=== PATIENT | female | born 1970 | race Caucasian/White ===

== ENCOUNTER 2017-06-06 17:48 | Observation (INO) ==
[2017-06-06 18:40] LABS: Bilirubin,Urine Negative (Negative); Blood,Urine Trace (Negative); Clarity,Urine Clear (Clear); Color,Urine Yellow (Yellow); Glucose,Urine (UA) 100 mg/dL (Normal); Ketones,Urine Negative (Negative); Leukocyte Esterase,Urine Negative (Negative); Nitrite,Urine Negative (Negative); Protein,Urine >=300 mg/dL (Neg-Trace); Specific Gravity,Urine 1.014 (1.010-1.025); Urobilinogen,Urine Normal (Normal)
[2017-06-06 18:42] LABS: Bacteria,Urine None Seen per hpf (None-Few); Hyaline Casts,Urine None Seen per lpf (None-Few); RBC,Urine 0-3 per hpf (0-3); Squamous Epithelial Cell,Urine Many per lpf (None-Few)
[2017-06-06] MEDS ORDERED: Haloperidol Lactate 5 MG/ML VIAL IVP ONE (19:35)
[2017-06-06] MEDS ORDERED: 0.9 % Sodium Chloride 1,000 ML IVC ONE (19:35)
--- NOTE | 2017-06-06 19:37 | Emergency Department Note ---
Disposition Clinical Impression: Gastroparesis Abdominal pain Qualifiers: Abdominal location: epigastric Qualified Code(s): R10.13 - Epigastric pain Chronic kidney disease Qualifiers: Chronic kidney disease stage: unspecified stage Qualified Code(s): N18.9 - Chronic kidney disease, unspecified Disposition: Admitted As Inpatient Condition: Fair Referrals: Soraya Lopez MD [Primary Care Provider] - Forms: Work/School Release, ED Satisfaction Letter Time of Disposition: 20:52 General Adult HPI - General Chief complaint: ED General Medical Stated complaint: ABD Pain,MAT,CP Time Seen by Provider: 06/06/17 18:40 Source: patient Mode of arrival: ambulatory Limitations: no limitations Nursing Notes Reviewed: Yes Vital Signs Reviewed: Yes - History of Present Illness HPI Narrative: 47-year-old female with a history of diabetes, gastroparesis, hypertension, fibromyalgia presents for evaluation of multiple complaints. Patient states she has been having chronic abdominal pain in the epigastrium. Patient does feel it she has undigested food in her stomach. Patient notes reflux of symptoms. Patient feels that this is different than her typical gastroparesis. Patient does have an insulin pump in place. Patient reports low-grade fevers nonproductive cough. Patient also reports shortness of breath. Patient reported back pain. Patient states that her bowel movements are at her baseline. The patient's had approximately 2 stools over the past week. Patient does follow with Dr. Saavedra. Patient denies any history of heart attacks or stents placed. Pain Scale: 7 - Related Data Home Medications Medication Instructions Recorded Confirmed Azathioprine [Imuran] 50 mg PO QAM 11/11/14 06/03/16 Diltiazem CD (24hr) [Cardizem CD] 300 mg PO QAM 11/11/14 06/03/16 FLUoxetine HCl [Prozac] 40 mg PO QAM 11/11/14 06/03/16 Fluticasone Propionate Nasal 100 mcg NS DAILY PRN 11/11/14 06/03/16 [Flonase] Gabapentin [Neurontin] 1,800 mg PO HS 11/11/14 06/03/16 Insulin ASPART [NovoLOG] 40 unit SQ CONT 11/11/14 06/03/16 Methylphenidate HCl [Ritalin] 20 mg PO TID 11/11/14 06/03/16 Multivitamin/Iron/Folic Acid 1 each PO DAILY 11/11/14 06/03/16 [Centrum Complete Multivit Tab] Pantoprazole Sodium [Protonix] 40 mg PO QAM 11/11/14 06/03/16 Rosuvastatin Calcium [Crestor] 10 mg PO DAILY 06/03/16 06/03/16 Previous Rx's Medication Instructions Recorded Clopidogrel Bisulfate [Plavix] 75 mg PO QAM #30 tablet 06/03/16 Albuterol Sulfate [Albuterol 2 puff IH Q6HR #1 hfa.aer.ad 12/27/16 Inhaler] Azithromycin [Zithromax] 250 mg PO DAILY #6 tablet 12/27/16 Allergies Allergy/AdvReac Type Severity Reaction Status Date / Time Varenicline [From Chantix] Allergy Hives Verified 12/27/16 13:20 acetaminophen [From Percocet] AdvReac Vomiting Verified 12/27/16 13:20 cilostazol AdvReac See Verified 12/27/16 13:20 Comments metoclopramide [From Reglan] AdvReac See Verified 12/27/16 13:20 Comments Oxycodone [From Percocet] AdvReac Vomiting Verified 12/27/16 13:20 Sulfa (Sulfonamide AdvReac Nausea Verified 12/27/16 13:20 Antibiotics) All systems ED: reviewed and negative except as stated. Constitutional: Denies: fever Cardiovascular: Reports: chest pain Respiratory: Reports: cough, dyspnea Gastrointestinal: Reports: abdominal pain, nausea, vomiting Past Medical History - Past Medical History Source: patient Medical history: Reports: diabetes, fibromyalgia, GERD, hyperlipidemia, hypertension, peripheral artery disease, renal disease Surgical history: Reports: sinus surgery, other Psychiatric history: Reports: anxiety, depression - Social History Smoking Status: Former smoker Smokeless Tobacco Status: No Alcohol use: Reports: occasionally Drug use: Reports: none Physical Exam - General Limitations: no limitations General appearance: alert, in no apparent distress - Head Head exam: atraumatic, normocephalic, normal inspection - Eye Eye exam: Present: normal appearance, PERRL, EOMI - ENT ENT exam: normal exam, normal oropharynx, mucous membranes moist - Neck Neck exam: Present: normal inspection - Chest Chest inspection: Present: normal inspection, symmetric chest wall rise - Respiratory Respiratory exam: Present: normal lung sounds bilaterally. Absent: respiratory distress - Cardiovascular Cardiovascular exam: Present: regular rate, normal rhythm - Abdominal Exam Abdominal exam: Present: soft, Non-Tender, hyperactive bowel sounds. Absent: distention, guarding, rebound - Extremities Exam Extremities exam: Present: normal inspection. Absent: pedal edema - Back Exam Back exam: Present: normal inspection - Neurological Exam Neurological exam: Present: alert - Skin Skin exam: Present: warm, dry, intact, normal color Course Course Narrative: Patient seen and examined. Patient will get basic labs and screening cardiopulmonary evaluation. Patient also get a CT scan the abdomen and pelvis. Patient treated with IV fluids and Haldol. - Reevaluation(s) Reevaluation #1: Patient seen and examined. Patient's repeat abdominal exam is unremarkable. Patient is agreeable with inpatient admission regarding her electrolyte abnormalities. Time: 20:50 Vital Signs Temperature 98.2 F 06/06/17 18:19 Pulse Rate 92 06/06/17 18:19 Respiratory Rate 18 06/06/17 18:19 Blood Pressure 117/71 06/06/17 18:19 O2 Sat by Pulse Oximetry 98 06/06/17 18:19 Temperature 98.2 F 06/06/17 18:19 Pulse Rate 81 06/06/17 19:39 Respiratory Rate 16 06/06/17 19:39 Blood Pressure 151/77 06/06/17 19:39 O2 Sat by Pulse Oximetry 98 06/06/17 19:39 Oxygen Delivery Oxygen Delivery Room Air Medical Decision Making - [facility] Narrative Medical decision making narrative: Patient presents with multiple complaints. Patient does have a history of gastroparesis and intermittently has some degree of abdominal discomfort. Patient states that her discomfort worsened over the past 24 hours. Noted to be primarily in the epigastrium. Patient does not have any right upper quadrant tenderness. Patient has also felt short of breath without any chest pain. No fevers or cough. Patient's ED evaluations consistent with acute on chronic kidney disease. Patient does have an element of gastroparesis treated with Haldol. Patient's resting comfortably following that medication. Patient does not show any signs or symptoms consistent with a bowel obstruction. Patient does have hyperactive bowel sounds and has a soft abdomen. Patient will be admitted for acute on chronic kidney disease. Patient's also been complaining of dyspnea that is subjective. Patient is not hypoxic or tachycardic. Patient's dyspnea is likely secondary to her abdominal distention and fullness. Patient is low risk for pulmonary embolism or ACS. Patient did get urine sodium and urine creatinine obtained. Patient was noted to be anemic but appears be chronic anemic in the setting of chronic kidney disease. Patient follows with Dr. Saunders. - Lab Data Lab results reviewed: Yes I reviewed the patient's lab results. Result diagrams: 06/06/17 19:29 06/06/17 19:29 Lab Results 06/06/17 06/06/17 06/06/17 Range/Units 18:00 19:29 19:29 WBC 10.9 (4.3-11.1) K/mcL RBC 3.62 L (3.82-4.97) M/mcL Hgb 11.4 L (11.5-15.4) g/dL Hct 35.0 L (35.3-44.9) % MCV 96.7 (83.0-100.0) fL MCH 31.5 (28.0-33.3) pg MCHC 32.6 (31.6-35.5) g/dL RDW 14.5 (11.5-14.5) % Plt Count 298 (140-400) K/mcL MPV 10.6 (9.4-12.4) fL Immature Gran % 0.3 (0-4) % Seg Neutrophils % 72.9 % Lymphocytes % 17.9 % Monocytes % 6.4 % Eosinophils % 1.9 % Basophils % 0.6 % Neutrophils # 7.9 (1.6-8.9) K/mcL Lymphocytes # 2.0 (0.6-4.6) K/mcL Monocytes # 0.7 (0.0-1.3) K/mcL Eosinophils # 0.2 (0.0-0.6) K/mcL Basophils # 0.1 (0.0-0.2) K/mcL Sodium 137 (136-145) mEq/L Potassium 4.9 (3.5-5.1) mEq/L Chloride 105 (98-107) mEq/L Carbon Dioxide 24 (23-29) mEq/L BUN 31 H (6-20) mg/dL Creatinine 2.95 H (0.60-1.20) mg/dL Est GFR ( Amer) 20 L (> 60) Est GFR (Non-Af Amer) 17 L (> 60) BUN/Creatinine Ratio 11 (6-26) Glucose 162 H (70-105) mg/dL Calculated Osmolality 294 (280-300) Lactic Acid (0.5-2.2) mmol/L Calcium 9.6 (8.6-10.3) mg/dL Total Bilirubin (0.3-1.0) mg/dL Direct Bilirubin (0.0-0.2) mg/dL Indirect Bilirubin (0.0-1.2) mg/dL AST (13-39) Units/L ALT (7-52) Units/L Alkaline Phosphatase (34-104) Units/L Troponin I < 0.03 (< 0.04) ng/mL B-Natriuretic Peptide (Less than 100) pg/mL Serum Total Protein (6.4-8.9) g/dL Albumin (3.5-5.7) g/dL Globulin (2.4-3.5) g/dL Albumin/Globulin Ratio (1.1-2.2) Lipase (11-82) Units/L Urine Color Yellow (Yellow) Urine Clarity Clear (Clear) Urine pH 6.0 (5.0-8.0) pH Units Ur Specific [place] 1.014 (1.010-1.025) Urine Protein >=300 H (Neg-Trace) mg/dL Urine Glucose (UA) 100 H (Normal) mg/dL Urine Ketones Negative (Negative) mg/dL Urine Blood Trace H (Negative) Urine Nitrite Negative (Negative) Urine Bilirubin Negative (Negative) Urine Urobilinogen Normal (Normal) mg/dL Ur Leukocyte Esterase Negative (Negative) Urine Microscopic RBC 0-3 (0-3) per hpf Urine Microscopic WBC 5-15 H (0-3) per hpf Ur Squamous Epith Cells Many H (None-Few) per lpf Urine Bacteria None Seen (None-Few) per hpf Hyaline Casts None Seen (None-Few) per lpf Ur Culture Indicated? NO (NO) 06/06/17 06/06/17 06/06/17 Range/Units 19:29 20:03 20:03 WBC (4.3-11.1) K/mcL RBC (3.82-4.97) M/mcL Hgb (11.5-15.4) g/dL Hct (35.3-44.9) % MCV (83.0-100.0) fL MCH (28.0-33.3) pg MCHC (31.6-35.5) g/dL RDW (11.5-14.5) % Plt Count (140-400) K/mcL MPV (9.4-12.4) fL Immature Gran % (0-4) % Seg Neutrophils % % Lymphocytes % % Monocytes % % Eosinophils % % Basophils % % Neutrophils # (1.6-8.9) K/mcL Lymphocytes # (0.6-4.6) K/mcL Monocytes # (0.0-1.3) K/mcL Eosinophils # (0.0-0.6) K/mcL Basophils # (0.0-0.2) K/mcL Sodium (136-145) mEq/L Potassium (3.5-5.1) mEq/L Chloride (98-107) mEq/L Carbon Dioxide (23-29) mEq/L BUN (6-20) mg/dL Creatinine (0.60-1.20) mg/dL Est GFR ( Amer) (> 60) Est GFR (Non-Af Amer) (> 60) BUN/Creatinine Ratio (6-26) Glucose (70-105) mg/dL Calculated Osmolality (280-300) Lactic Acid 0.8 (0.5-2.2) mmol/L Calcium (8.6-10.3) mg/dL Total Bilirubin 0.3 (0.3-1.0) mg/dL Direct Bilirubin 0.1 (0.0-0.2) mg/dL Indirect Bilirubin 0.2 (0.0-1.2) mg/dL AST 19 (13-39) Units/L ALT 12 (7-52) Units/L Alkaline Phosphatase 123 H (34-104) Units/L Troponin I (< 0.04) ng/mL B-Natriuretic Peptide 73 (Less than 100) pg/mL Serum Total Protein 8.1 (6.4-8.9) g/dL Albumin 4.3 (3.5-5.7) g/dL Globulin 3.8 H (2.4-3.5) g/dL Albumin/Globulin Ratio 1.1 (1.1-2.2) Lipase 25 (11-82) Units/L Urine Color (Yellow) Urine Clarity (Clear) Urine pH (5.0-8.0) pH Units Ur Specific [place] (1.010-1.025) Urine Protein (Neg-Trace) mg/dL Urine Glucose (UA) (Normal) mg/dL Urine Ketones (Negative) mg/dL Urine Blood (Negative) Urine Nitrite (Negative) Urine Bilirubin (Negative) Urine Urobilinogen (Normal) mg/dL Ur Leukocyte Esterase (Negative) Urine Microscopic RBC (0-3) per hpf Urine Microscopic WBC (0-3) per hpf Ur Squamous Epith Cells (None-Few) per lpf Urine Bacteria (None-Few) per hpf Hyaline Casts (None-Few) per lpf Ur Culture Indicated? (NO) - Radiology Data Radiology results reviewed: Yes I reviewed the patient's radiology results. Chest X-Ray 06/06/17 18:41 IMPRESSION: No acute cardiopulmonary disease. D/ / Elton Mcgrath MD / Elton Mcgrath MD Interpreting Provider: Elton Mcgrath MD Abdomen/Pelvis CT 06/06/17 19:34 IMPRESSION: No acute abdominopelvic abnormality detected. Large amount of retained stool throughout the colon. D/ / Jair Telles MD / Jair Telles MD Interpreting Provider: Jair Telles MD - EKG Data EKG #1 EKG attestation: Yes I reviewed and interpreted this EKG. EKG shows normal: sinus rhythm Rate: normal Rhythm: NSR [place]/QRS: normal P waves: LAE T wave inversions noted in: v1 Interpretation: no acute changes, nonspecific ST-T wave changes S.B.A.R. - S.B.A.RElías Situation: Demographics Background: Presenting Complaint Assessment: Vital Signs, Patient/Family Expectation Recommendation: Barrier(s) to disposition, Recommendation based on pending studies, treatments, or consults S.B.A.RElías Report Given to: Dr. Nhi Foreman Repor Time: 20:59
[2017-06-06 19:50] LABS: Basophils # 0.1 K/mcL (0.0-0.2); Basophils % 0.6 %; Eosinophils # 0.2 K/mcL (0.0-0.6); Eosinophils % 1.9 %; Hemoglobin 11.4 g/dL (11.5-15.4); Immature Granulocytes % 0.3 % (0-4); Lymphocytes % 17.9 %; Mean Corpuscular HGB Conc 32.6 g/dL (31.6-35.5); Mean Corpuscular Hemoglobin 31.5 pg (28.0-33.3); Mean Corpuscular Volume 96.7 fL (83.0-100.0); Mean Platelet Volume 10.6 fL (9.4-12.4); Monocytes # 0.7 K/mcL (0.0-1.3); Monocytes % 6.4 %; Neutrophils # 7.9 K/mcL (1.6-8.9); Platelet Count 298 K/mcL (140-400); Red Blood Count 3.62 M/mcL (3.82-4.97); Red Cell Distribution Width 14.5 % (11.5-14.5); Segmented Neutrophils % 72.9 %
[2017-06-06 20:12] LABS: Troponin I < 0.03 ng/mL (< 0.04)
[2017-06-06 20:13] LABS: BUN/Creatinine Ratio 11 (6-26); Blood Urea Nitrogen 31 mg/dL (6-20); Calcium 9.6 mg/dL (8.6-10.3); Carbon Dioxide 24 mEq/L (23-29); Chloride 105 mEq/L (98-107); Glucose 162 mg/dL (70-105); Osmolality,Calculated 294 (280-300); Potassium 4.9 mEq/L (3.5-5.1); Sodium 137 mEq/L (136-145); eGFR For African Americans 20 (> 60); eGFR For Non-African Americans 17 (> 60)
[2017-06-06 20:43] LABS: Albumin 4.3 g/dL (3.5-5.7); Albumin/Globulin Ratio 1.1 (1.1-2.2); Bilirubin,Direct 0.1 mg/dL (0.0-0.2); Bilirubin,Indirect 0.2 mg/dL (0.0-1.2); Bilirubin,Total 0.3 mg/dL (0.3-1.0); Globulin 3.8 g/dL (2.4-3.5); Total Protein 8.1 g/dL (6.4-8.9)
--- NOTE | 2017-06-06 20:56 | Emergency Department Note ---
Disposition Clinical Impression: Gastroparesis Abdominal pain Qualifiers: Abdominal location: epigastric Qualified Code(s): R10.13 - Epigastric pain Chronic kidney disease Qualifiers: Chronic kidney disease stage: unspecified stage Qualified Code(s): N18.9 - Chronic kidney disease, unspecified Disposition: Admitted As Inpatient Condition: Fair Referrals: Soraya Lopez MD [Primary Care Provider] - Forms: ED Satisfaction Letter, Work/School Release General Adult HPI - General Chief complaint: ED General Medical Stated complaint: ABD Pain,MAT,CP Time Seen by Provider: 06/06/17 18:40 Source: patient Mode of arrival: ambulatory Limitations: no limitations - History of Present Illness Pain Scale: 7 - Related Data Home Medications Medication Instructions Recorded Confirmed Azathioprine [Imuran] 50 mg PO QAM 11/11/14 06/03/16 Diltiazem CD (24hr) [Cardizem CD] 300 mg PO QAM 11/11/14 06/03/16 FLUoxetine HCl [Prozac] 40 mg PO QAM 11/11/14 06/03/16 Fluticasone Propionate Nasal 100 mcg NS DAILY PRN 11/11/14 06/03/16 [Flonase] Gabapentin [Neurontin] 1,800 mg PO HS 11/11/14 06/03/16 Insulin ASPART [NovoLOG] 40 unit SQ CONT 11/11/14 06/03/16 Methylphenidate HCl [Ritalin] 20 mg PO TID 11/11/14 06/03/16 Multivitamin/Iron/Folic Acid 1 each PO DAILY 11/11/14 06/03/16 [Centrum Complete Multivit Tab] Pantoprazole Sodium [Protonix] 40 mg PO QAM 11/11/14 06/03/16 Rosuvastatin Calcium [Crestor] 10 mg PO DAILY 06/03/16 06/03/16 Previous Rx's Medication Instructions Recorded Clopidogrel Bisulfate [Plavix] 75 mg PO QAM #30 tablet 06/03/16 Albuterol Sulfate [Albuterol 2 puff IH Q6HR #1 hfa.aer.ad 12/27/16 Inhaler] Azithromycin [Zithromax] 250 mg PO DAILY #6 tablet 12/27/16 Allergies Allergy/AdvReac Type Severity Reaction Status Date / Time Varenicline [From Chantix] Allergy Hives Verified 12/27/16 13:20 acetaminophen [From Percocet] AdvReac Vomiting Verified 12/27/16 13:20 cilostazol AdvReac See Verified 12/27/16 13:20 Comments metoclopramide [From Reglan] AdvReac See Verified 12/27/16 13:20 Comments Oxycodone [From Percocet] AdvReac Vomiting Verified 12/27/16 13:20 Sulfa (Sulfonamide AdvReac Nausea Verified 12/27/16 13:20 Antibiotics) Constitutional: Denies: fever Cardiovascular: Reports: chest pain Respiratory: Reports: cough, dyspnea Gastrointestinal: Reports: abdominal pain, nausea, vomiting Past Medical History - Past Medical History Medical history: Reports: diabetes, fibromyalgia, GERD, hyperlipidemia, hypertension, peripheral artery disease, renal disease Surgical history: Reports: sinus surgery, other Psychiatric history: Reports: anxiety, depression - Social History Smoking Status: Former smoker Smokeless Tobacco Status: No Alcohol use: Reports: occasionally Drug use: Reports: none Physical Exam - General Limitations: no limitations General appearance: alert, in no apparent distress Course Vital Signs Temperature 98.2 F 06/06/17 18:19 Pulse Rate 92 06/06/17 18:19 Respiratory Rate 18 06/06/17 18:19 Blood Pressure 117/71 06/06/17 18:19 O2 Sat by Pulse Oximetry 98 06/06/17 18:19 Temperature 98.2 F 06/06/17 18:19 Pulse Rate 81 06/06/17 19:39 Respiratory Rate 16 06/06/17 19:39 Blood Pressure 151/77 06/06/17 19:39 O2 Sat by Pulse Oximetry 98 06/06/17 19:39 Oxygen Delivery Oxygen Delivery Room Air Medical Decision Making - Lab Data Result diagrams: 06/06/17 19:29 06/06/17 19:29 Lab Results 06/06/17 06/06/17 06/06/17 Range/Units 18:00 19:29 19:29 WBC 10.9 (4.3-11.1) K/mcL RBC 3.62 L (3.82-4.97) M/mcL Hgb 11.4 L (11.5-15.4) g/dL Hct 35.0 L (35.3-44.9) % MCV 96.7 (83.0-100.0) fL MCH 31.5 (28.0-33.3) pg MCHC 32.6 (31.6-35.5) g/dL RDW 14.5 (11.5-14.5) % Plt Count 298 (140-400) K/mcL MPV 10.6 (9.4-12.4) fL Immature Gran % 0.3 (0-4) % Seg Neutrophils % 72.9 % Lymphocytes % 17.9 % Monocytes % 6.4 % Eosinophils % 1.9 % Basophils % 0.6 % Neutrophils # 7.9 (1.6-8.9) K/mcL Lymphocytes # 2.0 (0.6-4.6) K/mcL Monocytes # 0.7 (0.0-1.3) K/mcL Eosinophils # 0.2 (0.0-0.6) K/mcL Basophils # 0.1 (0.0-0.2) K/mcL Sodium 137 (136-145) mEq/L Potassium 4.9 (3.5-5.1) mEq/L Chloride 105 (98-107) mEq/L Carbon Dioxide 24 (23-29) mEq/L BUN 31 H (6-20) mg/dL Creatinine 2.95 H (0.60-1.20) mg/dL Est GFR ( Amer) 20 L (> 60) Est GFR (Non-Af Amer) 17 L (> 60) BUN/Creatinine Ratio 11 (6-26) Glucose 162 H (70-105) mg/dL Calculated Osmolality 294 (280-300) Lactic Acid (0.5-2.2) mmol/L Calcium 9.6 (8.6-10.3) mg/dL Total Bilirubin (0.3-1.0) mg/dL Direct Bilirubin (0.0-0.2) mg/dL Indirect Bilirubin (0.0-1.2) mg/dL AST (13-39) Units/L ALT (7-52) Units/L Alkaline Phosphatase (34-104) Units/L Troponin I < 0.03 (< 0.04) ng/mL B-Natriuretic Peptide (Less than 100) pg/mL Serum Total Protein (6.4-8.9) g/dL Albumin (3.5-5.7) g/dL Globulin (2.4-3.5) g/dL Albumin/Globulin Ratio (1.1-2.2) Lipase (11-82) Units/L Urine Color Yellow (Yellow) Urine Clarity Clear (Clear) Urine pH 6.0 (5.0-8.0) pH Units Ur Specific [place] 1.014 (1.010-1.025) Urine Protein >=300 H (Neg-Trace) mg/dL Urine Glucose (UA) 100 H (Normal) mg/dL Urine Ketones Negative (Negative) mg/dL Urine Blood Trace H (Negative) Urine Nitrite Negative (Negative) Urine Bilirubin Negative (Negative) Urine Urobilinogen Normal (Normal) mg/dL Ur Leukocyte Esterase Negative (Negative) Urine Microscopic RBC 0-3 (0-3) per hpf Urine Microscopic WBC 5-15 H (0-3) per hpf Ur Squamous Epith Cells Many H (None-Few) per lpf Urine Bacteria None Seen (None-Few) per hpf Hyaline Casts None Seen (None-Few) per lpf Ur Culture Indicated? NO (NO) 06/06/17 06/06/17 06/06/17 Range/Units 19:29 20:03 20:03 WBC (4.3-11.1) K/mcL RBC (3.82-4.97) M/mcL Hgb (11.5-15.4) g/dL Hct (35.3-44.9) % MCV (83.0-100.0) fL MCH (28.0-33.3) pg MCHC (31.6-35.5) g/dL RDW (11.5-14.5) % Plt Count (140-400) K/mcL MPV (9.4-12.4) fL Immature Gran % (0-4) % Seg Neutrophils % % Lymphocytes % % Monocytes % % Eosinophils % % Basophils % % Neutrophils # (1.6-8.9) K/mcL Lymphocytes # (0.6-4.6) K/mcL Monocytes # (0.0-1.3) K/mcL Eosinophils # (0.0-0.6) K/mcL Basophils # (0.0-0.2) K/mcL Sodium (136-145) mEq/L Potassium (3.5-5.1) mEq/L Chloride (98-107) mEq/L Carbon Dioxide (23-29) mEq/L BUN (6-20) mg/dL Creatinine (0.60-1.20) mg/dL Est GFR ( Amer) (> 60) Est GFR (Non-Af Amer) (> 60) BUN/Creatinine Ratio (6-26) Glucose (70-105) mg/dL Calculated Osmolality (280-300) Lactic Acid 0.8 (0.5-2.2) mmol/L Calcium (8.6-10.3) mg/dL Total Bilirubin 0.3 (0.3-1.0) mg/dL Direct Bilirubin 0.1 (0.0-0.2) mg/dL Indirect Bilirubin 0.2 (0.0-1.2) mg/dL AST 19 (13-39) Units/L ALT 12 (7-52) Units/L Alkaline Phosphatase 123 H (34-104) Units/L Troponin I (< 0.04) ng/mL B-Natriuretic Peptide 73 (Less than 100) pg/mL Serum Total Protein 8.1 (6.4-8.9) g/dL Albumin 4.3 (3.5-5.7) g/dL Globulin 3.8 H (2.4-3.5) g/dL Albumin/Globulin Ratio 1.1 (1.1-2.2) Lipase 25 (11-82) Units/L Urine Color (Yellow) Urine Clarity (Clear) Urine pH (5.0-8.0) pH Units Ur Specific [place] (1.010-1.025) Urine Protein (Neg-Trace) mg/dL Urine Glucose (UA) (Normal) mg/dL Urine Ketones (Negative) mg/dL Urine Blood (Negative) Urine Nitrite (Negative) Urine Bilirubin (Negative) Urine Urobilinogen (Normal) mg/dL Ur Leukocyte Esterase (Negative) Urine Microscopic RBC (0-3) per hpf Urine Microscopic WBC (0-3) per hpf Ur Squamous Epith Cells (None-Few) per lpf Urine Bacteria (None-Few) per hpf Hyaline Casts (None-Few) per lpf Ur Culture Indicated? (NO) Attestation Statement - Attestation Attestation: I examined this patient and my medical decision-making was reviewed with the Resident Physician. I agree with the documented findings, disposition and treatment plan as described except to the extent set forth below. 47 year old female prsentes to the ED with complaitns of abdominal pain and chest paina nd dyspnea and states that she has a history of diabetes and gastroparesis and follows with Dr. Saavedra. Patient has acute on chronic kdiney failure and states that she has been vomitting because she feels something stuck in her stoamch adn feels full all the time. We will admit for acute on chronic kidney disese
[2017-06-06] MEDS ORDERED: Naloxone 0.4 MG/ML INJ IVP PRN (21:27)
[2017-06-06] MEDS ORDERED: D5% in Water 1,000 ML IVC PRN (21:40)
[2017-06-06] MEDS ORDERED: Dextrose Gel 15 GM/37.5 ML TUBE PO PRN ×2 (21:40)
[2017-06-06] MEDS ORDERED: *HR* Dextrose 50 % in Water (Syg) 50 ML SYRINGE IVP PRN (21:40)
--- NOTE | 2017-06-06 21:40 | Internal Med History&Physical ---
Date of Encounter: 06/06/17 Time of Encounter: 21:00 Internal Medicine - H&P: HPI Chief complaint: Nausea, chest pain Admitted From: Home Plans for Post Hospital Care: Home History of present illness: Ms. Mercedes is a 47 year old female present to ER for nausea and reflex for 1- 2 days and intermittent chest pain for about 1 week. Past medical history: Diabetes on insulin pump, hypertension, autoimmune hepatitis, CKD, gastroparesis, PVD S/P stent, vitamin D deficiency, anemia, GERD Patient said she has GERD and gastroparesis due to diabetes and the she started to have nausea and increased the reflex for 1-2 days, with poor intake. Patient denies nausea or abdominal pain. She denies diarrhea. Patient also complaining of intermittent chest pain for about 1 week, no radiation, located on bilateral chest. Patient has chronic shortness of breath since the one month ago, when she had pneumonia. The chest pain lasted several minutes. Patient states sometimes diaphoresis. In the emergency room, EKG and a chest x- ray, and a CT abdomen unremarkable. Patient was found having elevated creatinine level from her baseline (1.5 -2.9). Patient was admitted for chest pain and GEOFF on CKD. Past Med Surg Social Fam HX - Past Medical History Medical history: diabetes, fibromyalgia, GERD, hyperlipidemia, hypertension, peripheral artery disease, renal disease Psychiatric history: anxiety, depression - Past Surgical History Surgical History: sinus surgery, other - Social History Smoking Status: Former smoker Smokeless Tobacco Status: No Alcohol use: occasionally Drug use: none - Family History Father Living Status: Still Living Hx Family Cancer: Yes (esophageal) Internal Medicine - H&P: Meds Azathioprine [Imuran] 50 mg PO QAM 11/11/14 [History] Diltiazem CD (24hr) [Cardizem CD] 300 mg PO QAM 11/11/14 [History] Fluticasone Propionate Nasal [Flonase] 100 mcg NS DAILY PRN 11/11/14 [History] Gabapentin [Neurontin] 1,800 mg PO HS 11/11/14 [History] Multivitamin/Iron/Folic Acid [Centrum Complete Multivit Tab] 1 each PO DAILY [History] Pantoprazole Sodium [Protonix] 40 mg PO QAM 11/11/14 [History] Rosuvastatin Calcium [Crestor] 10 mg PO DAILY 04/07/17 [History] Aspirin Enteric Coated [Aspirin EC] 81 mg PO DAILY 06/06/17 [History] Ergocalciferol (VITAMIN D2) [Vitamin D2] 50,000 unit PO MOFR 06/06/17 [History] FLUoxetine HCl [Prozac] 40 mg PO DAILY 06/06/17 [History] Fluticasone Propionate [Flovent Hfa] 2 puff IH BID 06/06/17 [History] Methylphenidate HCl [Ritalin] 20 mg PO TID 06/06/17 [History] Ondansetron HCl [Zofran] 4 mg PO DAILY 06/06/17 [History] Subcutaneous Insulin Pump [T:Slim] 1 each MC AD 06/06/17 [History] 3 Allergy/AdvReac Type Severity Reaction Status Date / Time Varenicline [From Chantix] Allergy Hives Verified 12/27/16 13:20 acetaminophen [From Percocet] AdvReac Vomiting Verified 12/27/16 13:20 cilostazol AdvReac See Verified 12/27/16 13:20 Comments metoclopramide [From Reglan] AdvReac See Verified 12/27/16 13:20 Comments Oxycodone [From Percocet] AdvReac Vomiting Verified 12/27/16 13:20 Sulfa (Sulfonamide AdvReac Nausea Verified 12/27/16 13:20 Antibiotics) All Systems PM: A 10-system review of systems was performed and is negative for pertinent findings except as documented above in the HPI. - Constitutional Vitals: Temp Pulse Resp BP Pulse Ox 98.2 F 76 14 139/79 97 06/06/17 18:19 06/06/17 21:28 06/06/17 21:28 06/06/17 21:28 06/06/17 21:28 General appearance: Present: A&O X 3, no acute distress, answers questions appropriately - Head Head exam: Present: atraumatic, normocephalic - Eye Eye exam: Present: PERRL, conjuntiva pink, sclera anicteric Pupils: Present: PERRL - Neck Neck exam general surgery: Present: supple, trachea midline. Absent: lymphadenopathy - Respiratory Respiratory exam: Present: CTAB. Absent: accessory muscle use, rales, rhonchi, wheezes - Cardiovascular Cardiovascular exam: Present: RRR, +S1, +S2. Absent: diastolic murmur, gallop, rubs, systolic murmur - GI/Abdominal GI/Abdominal exam: Present: normal bowel sounds, soft, tenderness (Mild epigastric tenderness without rebound or guarding), no peritoneal signs. Absent : distended - Extremities Exam Extremities exam: Present: warm, radial pulses palpable and symmetrical. Absent : calf tenderness, cyanotic, pedal edema - Neurological Exam Neurological exam: Present: CN II-XII intact, oriented X3, no focal deficits. Absent: pronater drift, facial droop, speech deficit - Skin Skin exam: Present: dry, intact Internal Med - H&P Results - Labs CBC & Chem 7: 06/06/17 19:29 06/06/17 19:29 Labs: Short CBC 06/06/17 Range/Units 19:29 WBC 10.9 (4.3-11.1) K/mcL Hgb 11.4 L (11.5-15.4) g/dL Hct 35.0 L (35.3-44.9) % Plt Count 298 (140-400) K/mcL Neutrophils # 7.9 (1.6-8.9) K/mcL BMP 06/06/17 19:29 Sodium 137 Potassium 4.9 Chloride 105 Carbon Dioxide 24 BUN 31 H Creatinine 2.95 H Glucose 162 H Calcium 9.6 Cardiac Enzymes 06/06/17 Range/Units 19:29 Troponin I < 0.03 (< 0.04) ng/mL Liver Function 06/06/17 Range/Units 20:03 Total Bilirubin 0.3 (0.3-1.0) mg/dL Direct Bilirubin 0.1 (0.0-0.2) mg/dL AST 19 (13-39) Units/L ALT 12 (7-52) Units/L Alkaline Phosphatase 123 H (34-104) Units/L Albumin 4.3 (3.5-5.7) g/dL Urine 06/06/17 Range/Units 18:00 Urine Color Yellow (Yellow) Urine Clarity Clear (Clear) Urine pH 6.0 (5.0-8.0) pH Units Ur Specific [place] 1.014 (1.010-1.025) Urine Protein >=300 H (Neg-Trace) mg/dL Urine Glucose (UA) 100 H (Normal) mg/dL - EKG Data -: EKG Interpreted by Myself EKG shows normal: sinus rhythm Rate: normal - Impressions ITS Impressions Chest X-Ray 06/06/17 18:41 IMPRESSION: No acute cardiopulmonary disease. D/ / Elton Mcgrath MD / Elton Mcgrath MD Interpreting Provider: Elton Mcgrath MD Abdomen/Pelvis CT 06/06/17 19:34 IMPRESSION: No acute abdominopelvic abnormality detected. Large amount of retained stool throughout the colon. D/ / Jair Telles MD / Jair Telles MD Interpreting Provider: Jair Telles MD - Assessment and plan (1) Chest pain Current Visit: Yes Status: Acute Assessment and plan: Patient has intermittent chest pain for 1 week. History of diabetes, hypertension, and smoking. Need to rule out myocardial ischemia. - Place patient on continuous cardiac monitoring - Track 3 sets of troponin to rule out ACS - Stress test in a.m. if troponin negative and patient is pain-free. Qualifiers: Chest pain type: precordial pain Qualified Code(s): R07.2 - Precordial pain (2) Acute on chronic renal failure Current Visit: Yes Status: Acute Assessment and plan: Patient has elevated creatinine from baseline of CKD. Patient has poor intake recently. Consider acute on chronic renal failure probably due to dehydration. - Hydrate patient with normal saline - US renal to rule out obstruction - Avoid nephrotoxic medications - Closely monitor renal function Qualifiers: Acute renal failure type: unspecified Chronic kidney disease stage: stage 3 (moderate) Qualified Code(s): N17.9 - Acute kidney failure, unspecified; N18.3 - Chronic kidney disease, stage 3 (moderate); N18.3 - Chronic kidney disease, stage 3 (moderate) (3) Diabetes Current Visit: No Status: Chronic Assessment and plan: Patient is on insulin pump at home. 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: with keno terminal operator use Diabetes mellitus complication status: with kidney complications Diabetes mellitus complication detail: with chronic kidney disease Chronic kidney disease stage: stage 3 (moderate) Qualified Code(s): E11.22 - Type 2 diabetes mellitus with diabetic chronic kidney disease; N18.3 - Chronic kidney disease, stage 3 (moderate); N18.3 - Chronic kidney disease, stage 3 (moderate); Z79.4 - halfway (current) use of insulin; 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 Hydralazine IV when necessary Qualifiers: Hypertension type: essential hypertension Qualified Code(s): I10 - Essential (primary) hypertension (5) Smoking Current Visit: No Status: Chronic - Time Spent With Patient Total time spent is greater than 50% in coordination of care (as documented) at patient's floor/unit and/or counseling patient: 40 minutes Greater than 35 minutes
[2017-06-06] MEDS: INSULIN PUMP SQ SCH (22:36)
[2017-06-06] MEDS: 0.9 % Sodium Chloride 1,000 ML IVC SCH (23:05)
[2017-06-07 01:09] LABS: Calcium 8.9 mg/dL (8.6-10.3); Chol/HDL Ratio 3.6 (0-4.9); Magnesium 1.7 mg/dL (1.6-2.6); Potassium 4.2 mEq/L (3.5-5.1)
[2017-06-07 01:15] LABS: Basophils # 0.1 K/mcL (0.0-0.2); Basophils % 0.8 %; Eosinophils # 0.3 K/mcL (0.0-0.6); Eosinophils % 2.4 %; Hematocrit 36.4 % (35.3-44.9); Hemoglobin 11.5 g/dL (11.5-15.4); Immature Granulocytes % 0.3 % (0-4); Lymphocytes # 2.5 K/mcL (0.6-4.6); Lymphocytes % 24.2 %; Mean Corpuscular HGB Conc 31.6 g/dL (31.6-35.5); Mean Corpuscular Hemoglobin 32.2 pg (28.0-33.3); Mean Platelet Volume 10.7 fL (9.4-12.4); Monocytes # 0.7 K/mcL (0.0-1.3); Monocytes % 7.2 %; Neutrophils # 6.7 K/mcL (1.6-8.9); Platelet Count 252 K/mcL (140-400); Red Blood Count 3.57 M/mcL (3.82-4.97); Red Cell Distribution Width 14.6 % (11.5-14.5); Segmented Neutrophils % 65.1 %
[2017-06-07 02:02] LABS: Platelet Estimate Normal (Normal)
[2017-06-07] MEDS ORDERED: Regadenoson 0.4 MG/5 ML SYRINGE IVP ONE (06:09)
[2017-06-07] MEDS: 0.9 % Sodium Chloride 1,000 ML IVC SCH ×2 (09:22→20:46)
--- NOTE | 2017-06-07 14:53 | Internal Med Progress Note ---
Date of Encounter: 06/07/17 Time of Encounter: 14:50 - Assessment and plan (1) Acute on chronic renal failure Current Visit: Yes Status: Acute Assessment and plan: has known history CKD. Cr 2.9 on arrival; appears to be increasing from 2016. Follows with nephrology. Suspect prerenal with poor by mouth intake. Continue IV fluids. Monitor repeat renal function. Qualifiers: Acute renal failure type: unspecified Chronic kidney disease stage: stage 3 (moderate) Qualified Code(s): N17.9 - Acute kidney failure, unspecified; N18.3 - Chronic kidney disease, stage 3 (moderate); N18.3 - Chronic kidney disease, stage 3 (moderate) (2) Chest pain Current Visit: Yes Status: Acute Assessment and plan: intermittent chest pain for 1 week. History of diabetes, hypertension, and smoking. Serial troponin negative, EKG without acute ST changes. Stress test ordered however patient refused. States she is not having chest pain and will follow up outpatient. Continue to monitor on telemetry Qualifiers: Chest pain type: precordial pain Qualified Code(s): R07.2 - Precordial pain (3) Diabetes Current Visit: No Status: Chronic Assessment and plan: Patient is on insulin pump at home. Will continue insulin pump, closely monitor glucose level, place patient on hypoglycemic protocol Qualifiers: Diabetes mellitus type: type 2 Diabetes mellitus fci insulin use: with fci use Diabetes mellitus complication status: with kidney complications Diabetes mellitus complication detail: with chronic kidney disease Chronic kidney disease stage: stage 3 (moderate) Qualified Code(s): E11.22 - Type 2 diabetes mellitus with diabetic chronic kidney disease; N18.3 - Chronic kidney disease, stage 3 (moderate); N18.3 - Chronic kidney disease, stage 3 (moderate); Z79.4 - senior care (current) use of insulin; 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 BP irritable and elevated at times. Cont home BP medications. PRN Hydralazine Qualifiers: Hypertension type: essential hypertension Qualified Code(s): I10 - Essential (primary) hypertension (5) Smoking Current Visit: No Status: Chronic Assessment and plan: current smoker; cessation advised (6) DVT prophylaxis Current Visit: Yes Status: Acute Assessment and plan: heparin - Time Spent With Patient Total time spent is greater than 50% in coordination of care (as documented) at patient's floor/unit and/or counseling patient: - Subjective Interval history: Seen and examined at bedside. Patient says she is feeling better and would like to discharge home. She reports having a small bowel movement and says she is chronically constipated. She does not want me to added aggressive bowel regimen's. Says she will have a bowel movement home. She is agreeable to stay overnight for continued IV fluids due to minimal improvement in kidney function. No chest pain or shortness of breath. Has an appetite and feels like she wants to eat. Of note patient refused stress test earlier this morning. Stated she did not have chest pain and is not having chest pain and would follow up outpatient. - Constitutional Vitals: Temp Pulse Resp BP Pulse Ox 97.8 F 83 16 170/81 96 06/07/17 14:19 06/07/17 14:19 06/07/17 14:19 06/07/17 14:19 06/07/17 14:19 General appearance: Present: A&O X 3, no acute distress, answers questions appropriately - Head Head exam: Present: atraumatic, normocephalic - Eye Eye exam: Present: PERRL, conjuntiva pink, sclera anicteric Pupils: Present: PERRL - Neck Neck exam general surgery: Present: supple, trachea midline. Absent: lymphadenopathy - Respiratory Respiratory exam: Present: CTAB. Absent: accessory muscle use, rales, rhonchi, wheezes - Cardiovascular Cardiovascular exam: Present: RRR, +S1, +S2. Absent: diastolic murmur, gallop, rubs, systolic murmur - GI/Abdominal GI/Abdominal exam: Present: hypoactive bowel sounds, normal bowel sounds, soft, no peritoneal signs. Absent: distended, tenderness - Extremities Exam Extremities exam: Present: warm, radial pulses palpable and symmetrical. Absent : calf tenderness, cyanotic, pedal edema - Neurological Exam Neurological exam: Present: CN II-XII intact, oriented X3, no focal deficits. Absent: pronater drift, facial droop, speech deficit - Skin Skin exam: Present: dry, intact Internal Medicine: Result - Labs CBC & Chem 7: 06/07/17 00:15 06/07/17 00:15 Labs: Short CBC 06/07/17 Range/Units 00:15 WBC 10.3 (4.3-11.1) K/mcL Hgb 11.5 (11.5-15.4) g/dL Hct 36.4 (35.3-44.9) % Plt Count 252 (140-400) K/mcL Neutrophils # 6.7 (1.6-8.9) K/mcL BMP 06/07/17 00:15 Sodium 138 Potassium 4.2 Chloride 110 H Carbon Dioxide 21 L BUN 29 H Creatinine 2.75 H Glucose 135 H Calcium 8.9 Cardiac Enzymes 06/07/17 06/07/17 Range/Units 00:15 05:11 Troponin I < 0.03 < 0.03 (< 0.04) ng/mL Consult Discharge Plan - Plan Referrals: Soraya Lopez MD [Primary Care Provider] -
[2017-06-07] MEDS ORDERED: (Subcutaneous Insulin Pump [T:Slim] 1 EACH) MC SCH (15:00)
[2017-06-07] MEDS: *HR* Heparin 5,000 UNIT/ML VIAL SQ SCH (20:48)
[2017-06-07] MEDS: INSULIN PUMP SQ SCH (20:48)
[2017-06-07] MEDS: Beclomethasone 40mcg MDI IH SCH (20:53)
[2017-06-07] MEDS ORDERED: NON-FORMULARY MEDICATION 1 EACH EACH (Gabapentin [Neurontin] 1,200 MG) PO SCH (21:00)
[2017-06-08] MEDS: *HR* Heparin 5,000 UNIT/ML VIAL SQ SCH (06:02)
[2017-06-08] MEDS: 0.9 % Sodium Chloride 1,000 ML IVC SCH (06:06)
[2017-06-08] MEDS ORDERED: Diltiazem CD (24hr) 300 MG CAPSULE PO SCH (09:00)
[2017-06-08] MEDS ORDERED: FLUoxetine 20 MG CAPSULE PO SCH (09:00)
[2017-06-08] MEDS ORDERED: Aspirin Enteric Coated 81 MG Tablet PO SCH (09:00)
[2017-06-08 09:36] LABS: Potassium 4.3 mEq/L (3.5-5.1)
[2017-06-08 10:15] VITALS: BP 154/70
[2017-06-08] MEDS: Beclomethasone 40mcg MDI IH SCH (10:31)
--- NOTE | 2017-06-08 12:35 | Discharge Summary ---
- NOTES TO OUTPATIENT PROVIDER Notes to Outpatient Provider: Recommend repeat CMP within 7-10 days Date of Encounter: 06/08/17 Time of Encounter: 12:32 - Discharge Diagnosis (1) Acute on chronic renal failure Priority: Primary Status: Acute Comments: has known history CKD. Cr 2.9 on arrival; appears to be increasing from 2016. Follows with nephrology. Suspect prerenal with poor by mouth intake. Cr 2.2 at time of discharge. Discussed with Dr. Gomes and vj for patient to discharge home with outpatient follow-up as long as she is taking in adequate oral intake. Tolerating regular diet at time of discharge. Recommend follow- up with nephrology and/or PCP within 7-10 days for repeat CMP. Qualifiers: Acute renal failure type: unspecified Chronic kidney disease stage: stage 3 (moderate) Qualified Code(s): N17.9 - Acute kidney failure, unspecified; N18.3 - Chronic kidney disease, stage 3 (moderate); N18.3 - Chronic kidney disease, stage 3 (moderate) (2) Chest pain Priority: Primary Status: Acute Comments: ED reported intermittent chest pain for 1 week; however patient denied. Cardiac risk factors include diabetes, hypertension, and smoking. Serial troponin negative, EKG without acute ST changes. Stress test ordered however patient refused. States she is not having chest pain and will follow up outpatient. 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 Follow up outpatient. 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 BP not well-controlled. Home CCB increased. Recommend follow-up with PCP within one week for BP recheck Qualifiers: Hypertension type: essential hypertension Qualified Code(s): I10 - Essential (primary) hypertension (5) Smoking Priority: Secondary Status: Chronic Comments: Current smoker. Cessation advised. Hospital course: Ms. Mercedes is a 47 year old female - Time Spent with Patient Total time spent providing and/or coordinating discharge services: - Discharge Medications Prescriptions: Diltiazem HCl [Cardizem LA] 360 mg PO DAILY #30 tab.er.24h Polyethylene Glycol 3350 [MiraLAX] 17 gm PO DAILY #30 powd.pack Home Medications: Azathioprine [Imuran] 50 mg PO QAM 11/11/14 [History] Fluticasone Propionate Nasal [Flonase] 100 mcg NS DAILY PRN 11/11/14 [History] Gabapentin [Neurontin] 1,200 mg PO HS 11/11/14 [History] Multivitamin/Iron/Folic Acid [Centrum Complete Multivit Tab] 1 each PO DAILY [History] Pantoprazole Sodium [Protonix] 40 mg PO QAM 11/11/14 [History] Rosuvastatin Calcium [Crestor] 10 mg PO HS 06/03/16 [History] Aspirin Enteric Coated [Aspirin EC] 81 mg PO DAILY 06/06/17 [History] Ergocalciferol (VITAMIN D2) [Vitamin D2] 50,000 unit PO MOFR 06/06/17 [History] FLUoxetine HCl [Prozac] 40 mg PO DAILY 06/06/17 [History] Fluticasone Propionate [Flovent Hfa] 2 puff IH BID 06/06/17 [History] Methylphenidate HCl [Ritalin] 20 mg PO TID 06/06/17 [History] Ondansetron HCl [Zofran] 4 mg PO DAILY 06/06/17 [History] Subcutaneous Insulin Pump [T:Slim] 1 each MC AD 06/06/17 [History] Diltiazem HCl [Cardizem LA] 360 mg PO DAILY #30 tab.er.24h 06/08/17 [Rx] Polyethylene Glycol 3350 [MiraLAX] 17 gm PO DAILY #30 powd.pack 06/08/17 [Rx] Allergies/Adverse Reactions: 3 Allergy/AdvReac Type Severity Reaction Status Date / Time Varenicline [From Chantix] Allergy Hives Verified 12/27/16 13:20 acetaminophen [From Percocet] AdvReac Vomiting Verified 12/27/16 13:20 cilostazol AdvReac See Verified 12/27/16 13:20 Comments metoclopramide [From Reglan] AdvReac See Verified 12/27/16 13:20 Comments Oxycodone [From Percocet] AdvReac Vomiting Verified 12/27/16 13:20 Sulfa (Sulfonamide AdvReac Nausea Verified 12/27/16 13:20 Antibiotics) Date of admission: 06/06/17 21:45 Primary care physician: Soraya Merc[facility] Discharging clinician: Sakina Andrew Anticipated date of discharge: 06/08/17 - Constitutional Vitals: Temp Pulse Resp BP Pulse Ox 97.9 F 64 20 154/70 99 06/08/17 10:12 06/08/17 10:12 06/08/17 10:31 06/08/17 10:12 06/08/17 10:31 General appearance: Present: A&O X 3, no acute distress, answers questions appropriately - Head Head exam: Present: atraumatic, normocephalic - Eye Eye exam: Present: PERRL, conjuntiva pink, sclera anicteric Pupils: Present: PERRL - Neck Neck exam general surgery: Present: supple, trachea midline. Absent: lymphadenopathy - Respiratory Respiratory exam: Present: CTAB. Absent: accessory muscle use, rales, rhonchi, wheezes - Cardiovascular Cardiovascular exam: Present: RRR, +S1, +S2. Absent: diastolic murmur, gallop, rubs, systolic murmur - GI/Abdominal GI/Abdominal exam: Present: normal bowel sounds, soft, no peritoneal signs. Absent: distended, tenderness - Extremities Exam Extremities exam: Present: warm, radial pulses palpable and symmetrical. Absent : calf tenderness, cyanotic, pedal edema - Neurological Exam Neurological exam: Present: CN II-XII intact, oriented X3, no focal deficits. Absent: pronater drift, facial droop, speech deficit - Skin Skin exam: Present: dry, intact - Patient Status Disposition: Home, Self-Care Condition: Good Functional capacity at discharge: independent ambulation Overall status at discharge: patient is back to baseline - Discharge Instructions Instructions: Polyethylene Glycol 3350 (By mouth), Constipation (DC), Chronic Kidney Disease (DC) Follow Up With: Soraya Lopez MD [Primary Care Provider] - (Please call for follow-up appointment within 7-10 days) Bj Gomes DO [Non-Partnered Physician] - (Please call for follow-up appointment within 24 hours or next business day. He should have a repeat renal function panel labs drawn within 7-10 days.) - Diet and Activity Activity: increase activity as tolerated Diet: advance to your usual diet
--- NOTE | 2017-06-08 17:04 | Electrocardiograph Report ---
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
== END 2017-06-08 14:13 | disposition home or self-care (01) ==
LOC: EMEROO 17:48 → 3ANU 17:48 → SUATTDRO 21:45 → 3ANU 22:10
PROVIDERS: ADMIT Internal Medicine; ATTEND Internal Medicine

== ENCOUNTER 2017-08-30 17:34 | Observation (INO) ==
[2017-08-30] MEDS ORDERED: 0.9 % Sodium Chloride 1,000 ML IVC ONE (17:45)
--- NOTE | 2017-08-30 17:50 | Emergency Department Note ---
Disposition Clinical Impression: GI bleed Qualifiers: GI bleed type/associated pathology: unspecified gastrointestinal hemorrhage type Qualified Code(s): K92.2 - Gastrointestinal hemorrhage, unspecified Anemia Qualifiers: Anemia type: unspecified type Qualified Code(s): D64.9 - Anemia, unspecified Disposition: Admitted As Inpatient Condition: Fair Time of Disposition: 18:40 GI Bleed HPI - General Chief complaint: ED GI Bleed Stated complaint: Hgb 10/passing blood clots Time Seen by Provider: 08/30/17 17:43 Source: patient Mode of arrival: ambulatory Limitations: no limitations Nursing Notes Reviewed: Yes Vital Signs Reviewed: Yes - History of Present Illness HPI Narrative: Patient presents to the ED with the chief complaint of GI bleed. Patient states that she is been anemic for quite some time and saw her bulk sealer operator, Dr. Saavedra yesterday and her hemoglobin was around 10. States that she has continued to have dark red to brown clots passing her stool. States that she was supposed to be getting a colonoscopy soon, and that Dr. Saavedra' s office called her and left a message and told her to come to the ER because of the anemia. Patient states that she has chronic crampy abdominal pain and this is not new. She is also chronically nauseated but no change from baseline. No fever, chills, chest pain, shortness of breath or vomiting. States that she does feel weak, lightheaded and dizzy at times. No vaginal bleeding or discharge. No dysuria, hematuria. - Related Data Home Medications Medication Instructions Recorded Confirmed Azathioprine [Imuran] 50 mg PO QAM 11/11/14 06/06/17 Fluticasone Propionate Nasal 100 mcg NS DAILY PRN 11/11/14 06/06/17 [Flonase] Gabapentin [Neurontin] 1,200 mg PO HS 11/11/14 06/06/17 Multivitamin/Iron/Folic Acid 1 each PO DAILY 11/11/14 06/06/17 [Centrum Complete Multivit Tab] Pantoprazole Sodium [Protonix] 40 mg PO QAM 11/11/14 06/06/17 Rosuvastatin Calcium [Crestor] 10 mg PO HS 06/03/16 06/06/17 Aspirin Enteric Coated [Aspirin EC] 81 mg PO DAILY 06/06/17 06/06/17 Ergocalciferol (VITAMIN D2) 50,000 unit PO MOFR 06/06/17 06/06/17 [Vitamin D2] FLUoxetine HCl [Prozac] 40 mg PO DAILY 06/06/17 06/06/17 Fluticasone Propionate [Flovent 2 puff IH BID 06/06/17 06/06/17 Hfa] Methylphenidate HCl [Ritalin] 20 mg PO TID 06/06/17 06/06/17 Ondansetron HCl [Zofran] 4 mg PO DAILY 06/06/17 06/06/17 Subcutaneous Insulin Pump [T:Slim] 1 each MC AD 06/06/17 06/06/17 Previous Rx's Medication Instructions Recorded Diltiazem HCl [Cardizem LA] 360 mg PO DAILY #30 tab.er.24h 06/08/17 Polyethylene Glycol 3350 [MiraLAX] 17 gm PO DAILY #30 powd.pack 06/08/17 Allergies Allergy/AdvReac Type Severity Reaction Status Date / Time Varenicline [From Chantix] Allergy Hives Verified 08/30/17 17:39 cilostazol AdvReac See Verified 08/30/17 17:39 Comments metoclopramide [From Reglan] AdvReac See Verified 08/30/17 17:39 Comments Oxycodone [From Percocet] AdvReac Vomiting Verified 08/30/17 17:39 Sulfa (Sulfonamide AdvReac Nausea Verified 08/30/17 17:39 Antibiotics) Review of Systems: As reviewed in the HPI. All other systems reviewed are negative or normal. Past Medical History - Past Medical History Attestation: Yes The following information was validated with the patient. Source: patient Medical history: Reports: diabetes, fibromyalgia, GERD, hyperlipidemia, hypertension, liver disease, peripheral artery disease, renal disease Surgical history: Reports: orthopedic, other, sinus surgery, other Psychiatric history: Reports: anxiety, depression - Social History Smoking Status: Current every day smoker Smokeless Tobacco Status: No Alcohol use: Reports: occasionally Drug use: Reports: none Physical Exam - General Limitations: no limitations General appearance: alert, in no apparent distress - Head Head exam: atraumatic, normocephalic, normal inspection - Eye Eye exam: Present: normal appearance, PERRL, EOMI - ENT ENT exam: normal exam, normal oropharynx, mucous membranes moist - Neck Neck exam: Present: normal inspection, full ROM, trachea midline - Chest Chest inspection: Present: normal inspection, symmetric chest wall rise - Respiratory Respiratory exam: Present: normal lung sounds bilaterally - Cardiovascular Cardiovascular exam: Present: regular rate, normal rhythm, normal heart sounds - Abdominal Exam Abdominal exam: Present: soft, tenderness. Absent: distention, guarding, rebound Abdominal tenderness: Present: diffuse, mild - Rectal Exam Rectal exam: Present: deferred - Extremities Exam Extremities exam: Present: normal inspection, full ROM. Absent: tenderness, pedal edema - Back Exam Back exam: Present: normal inspection, full ROM. Absent: tenderness - Neurological Exam Neurological exam: Present: alert, oriented X3 - Psychiatric Psychiatric exam: Present: normal affect, normal mood - Skin Skin exam: Present: warm, dry, intact, normal color Course Course Narrative: Patient presenting with GI bleed. Her GI doctor told her to come to the hospital because of anemia. Overall, she looks well and is actually hypertensive. Does not seem to be unstable. We will check labs and likely admit. - Reevaluation(s) Reevaluation #1: HGB stable. Admitted to hospitalist service. Will put in consult to GI since they sent her in but non-emergent and will be able to speak with them in the AM. Vital Signs Temperature 98.5 F 08/30/17 17:39 Pulse Rate 95 08/30/17 17:39 Respiratory Rate 20 08/30/17 17:39 Blood Pressure 170/72 08/30/17 17:39 O2 Sat by Pulse Oximetry 98 08/30/17 17:39 Temperature 98.5 F 08/30/17 17:47 Pulse Rate 80 08/30/17 17:47 Respiratory Rate 20 08/30/17 17:47 Blood Pressure 147/68 08/30/17 17:47 O2 Sat by Pulse Oximetry 97 08/30/17 17:47 Oxygen Delivery Oxygen Delivery Room Air GI Bleed - Medical Records Medical records reviewed: Yes I reviewed the patient's medical records. - Lab Data Lab results reviewed: Yes I reviewed the patient's lab results. Result diagrams: 08/30/17 17:45 Lab Results 08/30/17 Range/Units 17:45 WBC 8.3 (4.3-11.1) K/mcL RBC 3.37 L (3.82-4.97) M/mcL Hgb 10.9 L (11.5-15.4) g/dL Hct 32.0 L (35.3-44.9) % MCV 95.0 (83.0-100.0) fL MCH 32.3 (28.0-33.3) pg MCHC 34.1 (31.6-35.5) g/dL RDW 13.9 (11.5-14.5) % Plt Count 244 (140-400) K/mcL MPV 11.2 (9.4-12.4) fL Immature Gran % 0.2 (0-4) % Seg Neutrophils % 65.3 % Lymphocytes % 22.1 % Monocytes % 8.0 % Eosinophils % 3.9 % Basophils % 0.5 % Neutrophils # 5.4 (1.6-8.9) K/mcL Lymphocytes # 1.8 (0.6-4.6) K/mcL Monocytes # 0.7 (0.0-1.3) K/mcL Eosinophils # 0.3 (0.0-0.6) K/mcL Basophils # 0.0 (0.0-0.2) K/mcL
[2017-08-30 18:14] LABS: Basophils % 0.5 %; Eosinophils # 0.3 K/mcL (0.0-0.6); Eosinophils % 3.9 %; Hemoglobin 10.9 g/dL (11.5-15.4); Immature Granulocytes % 0.2 % (0-4); Lymphocytes # 1.8 K/mcL (0.6-4.6); Lymphocytes % 22.1 %; Mean Corpuscular HGB Conc 34.1 g/dL (31.6-35.5); Mean Corpuscular Hemoglobin 32.3 pg (28.0-33.3); Mean Platelet Volume 11.2 fL (9.4-12.4); Monocytes # 0.7 K/mcL (0.0-1.3); Neutrophils # 5.4 K/mcL (1.6-8.9); Platelet Count 244 K/mcL (140-400); Red Blood Count 3.37 M/mcL (3.82-4.97); Red Cell Distribution Width 13.9 % (11.5-14.5); Segmented Neutrophils % 65.3 %
--- NOTE | 2017-08-30 18:22 | Emergency Department Note ---
Disposition Clinical Impression: GI bleed Qualifiers: GI bleed type/associated pathology: unspecified gastrointestinal hemorrhage type Qualified Code(s): K92.2 - Gastrointestinal hemorrhage, unspecified Disposition: Admitted As Inpatient Condition: Fair Referrals: Soraya Lopez MD [Primary Care Provider] - Forms: ED Satisfaction Letter General Adult HPI - General Chief complaint: ED GI Bleed Stated complaint: Hgb 10/passing blood clots Time Seen by Provider: 08/30/17 17:43 Source: patient Mode of arrival: ambulatory Limitations: no limitations Nursing Notes Reviewed: Yes Vital Signs Reviewed: Yes - History of Present Illness Pain Scale: 0 - Related Data Home Medications Medication Instructions Recorded Confirmed Azathioprine [Imuran] 50 mg PO QAM 11/11/14 06/06/17 Fluticasone Propionate Nasal 100 mcg NS DAILY PRN 11/11/14 06/06/17 [Flonase] Gabapentin [Neurontin] 1,200 mg PO HS 11/11/14 06/06/17 Multivitamin/Iron/Folic Acid 1 each PO DAILY 11/11/14 06/06/17 [Centrum Complete Multivit Tab] Pantoprazole Sodium [Protonix] 40 mg PO QAM 11/11/14 06/06/17 Rosuvastatin Calcium [Crestor] 10 mg PO HS 06/03/16 06/06/17 Aspirin Enteric Coated [Aspirin EC] 81 mg PO DAILY 06/06/17 06/06/17 Ergocalciferol (VITAMIN D2) 50,000 unit PO MOFR 06/06/17 06/06/17 [Vitamin D2] FLUoxetine HCl [Prozac] 40 mg PO DAILY 06/06/17 06/06/17 Fluticasone Propionate [Flovent 2 puff IH BID 06/06/17 06/06/17 Hfa] Methylphenidate HCl [Ritalin] 20 mg PO TID 06/06/17 06/06/17 Ondansetron HCl [Zofran] 4 mg PO DAILY 06/06/17 06/06/17 Subcutaneous Insulin Pump [T:Slim] 1 each MC AD 06/06/17 06/06/17 Previous Rx's Medication Instructions Recorded Diltiazem HCl [Cardizem LA] 360 mg PO DAILY #30 tab.er.24h 06/08/17 Polyethylene Glycol 3350 [MiraLAX] 17 gm PO DAILY #30 powd.pack 06/08/17 Allergies Allergy/AdvReac Type Severity Reaction Status Date / Time Varenicline [From Chantix] Allergy Hives Verified 08/30/17 17:39 cilostazol AdvReac See Verified 08/30/17 17:39 Comments metoclopramide [From Reglan] AdvReac See Verified 08/30/17 17:39 Comments Oxycodone [From Percocet] AdvReac Vomiting Verified 08/30/17 17:39 Sulfa (Sulfonamide AdvReac Nausea Verified 08/30/17 17:39 Antibiotics) Past Medical History - Past Medical History Medical history: Reports: diabetes, fibromyalgia, GERD, hyperlipidemia, hypertension, liver disease, peripheral artery disease, renal disease Surgical history: Reports: orthopedic, other, sinus surgery, other Psychiatric history: Reports: anxiety, depression 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 ASPNET 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 history - Social History Smoking Status: Current every day smoker Smokeless Tobacco Status: No Alcohol use: Reports: occasionally Drug use: Reports: none Physical Exam - General Limitations: no limitations General appearance: alert, in no apparent distress Course Vital Signs Temperature 98.5 F 08/30/17 17:39 Pulse Rate 95 08/30/17 17:39 Respiratory Rate 20 08/30/17 17:39 Blood Pressure 170/72 08/30/17 17:39 O2 Sat by Pulse Oximetry 98 08/30/17 17:39 Temperature 98.5 F 08/30/17 17:47 Pulse Rate 80 08/30/17 17:47 Respiratory Rate 20 08/30/17 17:47 Blood Pressure 147/68 08/30/17 17:47 O2 Sat by Pulse Oximetry 97 08/30/17 17:47 Oxygen Delivery Oxygen Delivery Room Air Medical Decision Making - Lab Data Result diagrams: 08/30/17 17:45 Lab Results 08/30/17 Range/Units 17:45 WBC 8.3 (4.3-11.1) K/mcL RBC 3.37 L (3.82-4.97) M/mcL Hgb 10.9 L (11.5-15.4) g/dL Hct 32.0 L (35.3-44.9) % MCV 95.0 (83.0-100.0) fL MCH 32.3 (28.0-33.3) pg MCHC 34.1 (31.6-35.5) g/dL RDW 13.9 (11.5-14.5) % Plt Count 244 (140-400) K/mcL MPV 11.2 (9.4-12.4) fL Immature Gran % 0.2 (0-4) % Seg Neutrophils % 65.3 % Lymphocytes % 22.1 % Monocytes % 8.0 % Eosinophils % 3.9 % Basophils % 0.5 % Neutrophils # 5.4 (1.6-8.9) K/mcL Lymphocytes # 1.8 (0.6-4.6) K/mcL Monocytes # 0.7 (0.0-1.3) K/mcL Eosinophils # 0.3 (0.0-0.6) K/mcL Basophils # 0.0 (0.0-0.2) K/mcL Attestation Statement - Attestation Attestation: This documentation is done with the assistance of Dragon dictation. Despite efforts made to ensure accuracy, there may be inaccuracies in piping supervisor or spelling and typographical errors. The history, physical exam, and medical decision making was performed by the medical student either while I was physically present and actively involved or I personally re-performed the exam and medical decision making. I have verified the accuracy of the medical student's documentation with regards to the history, physical exam findings, and medical decision making. Patient seen and evaluated Dr. Gottlieb and myself, agree with his evaluation and management plan, supervised the care the patient's stay. Patient presents from outpatient setting should hemoglobin done yesterday secondary to passing blood clots per rectum. Hemoglobin was in the middle attends. She had one previously that was 12. So they told her to come in today to be seen. She has abdominal pain but socialize has abdominal pain. She denies any fevers or chills no vomiting at this point. We will order a GI workup. We have talked to medicine they will admit her to the hospital; patient's in agreement with this plan.
[2017-08-30 18:44] LABS: Albumin 4.1 g/dL (3.5-5.7); Albumin/Globulin Ratio 1.1 (1.1-2.2); Bilirubin,Total 0.4 mg/dL (0.3-1.0); Calcium 9.6 mg/dL (8.6-10.3); Globulin 3.8 g/dL (2.4-3.5); Potassium 4.8 mEq/L (3.5-5.1); Total Protein 7.9 g/dL (6.4-8.9)
--- NOTE | 2017-08-30 20:36 | Internal Med History&Physical ---
Date of Encounter: 08/30/17 Time of Encounter: 06:00 Internal Medicine - H&P: HPI History of present illness: Ms. Mercedes is a 47 year old female presents to the ED with the chief complaint of GI bleed and stated that she was sent by her transfer engineer, Dr. Saavedra yesterday for hemoglobin was around 10. She is C/O chronic crampy abdominal pain associated with nausea,weakness , lightheaded and dizziness. She was admitted for further evaluation Past Med Surg Social Fam HX - Past Medical History Medical history: diabetes, fibromyalgia, GERD, hyperlipidemia, hypertension, liver disease, peripheral artery disease, renal disease Additional medical history: IBS gastroperisis choleitis Sleep apnea Psychiatric history: anxiety, depression - Past Surgical History Surgical History: orthopedic, other, sinus surgery, other Additional surgical history: Bilateral eye disease. - Social History Smoking Status: Current every day smoker Packs per day: 1 pack Smokeless Tobacco Status: No Alcohol use: occasionally Drug use: none - Family History Mother Adopted: [place]: [place] Family Member Ethnicity: Non- Living Status: Still Living Hx Family Cardiac Disorders: No Hx Family Respiratory Disorders: No Hx Family Cancer: No Hx Family GI Disorders: No Hx Family Genitourinary Disorders: No Hx Family Endocrine Disorder: No Hx Family Musculoskeletal Disorders: No Hx Family Neuromuscular Disorders: No Hx Family Neurologic Disorders: No Hx Family HEENT Disorders: No Hx Family Autoimmune Disorders: No Hx Family Reproductive Disorders: No Hx Family Psychosocial Disorders: No Hx Family Medical Disorders: No ([place] disease) Father History Unknown: Yes Name: Rosales Man Family Member Ethnicity: Non- Living Status: Still Living Hx Family Cancer: Yes (esophageal cancer) Internal Medicine - H&P: Meds Azathioprine [Imuran] 50 mg PO QAM 11/11/14 [History] Fluticasone Propionate Nasal [Flonase] 88 mcg NS BID 11/11/14 [History] Gabapentin [Neurontin] 600 mg PO HS 11/11/14 [History] Multivitamin/Iron/Folic Acid [Centrum Complete Multivit Tab] 1 each PO DAILY [History] Pantoprazole Sodium [Protonix] 40 mg PO QAM 11/11/14 [History] Rosuvastatin Calcium [Crestor] 10 mg PO HS 06/03/16 [History] Aspirin Enteric Coated [Aspirin EC] 81 mg PO DAILY 06/06/17 [History] Ergocalciferol (VITAMIN D2) [Vitamin D2] 50,000 unit PO MOFR 06/06/17 [History] FLUoxetine HCl [Prozac] 40 mg PO DAILY 06/06/17 [History] Fluticasone Propionate [Flovent Hfa] 2 puff IH BID 06/06/17 [History] Methylphenidate HCl [Ritalin] 20 mg PO TID 06/06/17 [History] Ondansetron HCl [Zofran] 4 mg PO DAILY 06/06/17 [History] Subcutaneous Insulin Pump [T:Slim] 1 each MC AD 06/06/17 [History] Diltiazem HCl [Cardizem LA] 300 mg PO DAILY 08/30/17 [History] HydrOXYzine Pamoate [Vistaril] 50 mg PO BID PRN 08/30/17 [History] Polyethylene Glycol 3350 [MiraLAX] 17 gm PO PRN PRN 08/30/17 [History] Trulance 5 mg PO DAILY 08/30/17 [History] 3 Allergy/AdvReac Type Severity Reaction Status Date / Time Varenicline [From Chantix] Allergy Hives Verified 08/30/17 17:39 cilostazol AdvReac See Verified 08/30/17 17:39 Comments metoclopramide [From Reglan] AdvReac See Verified 08/30/17 17:39 Comments Oxycodone [From Percocet] AdvReac Vomiting Verified 08/30/17 17:39 Sulfa (Sulfonamide AdvReac Nausea Verified 08/30/17 17:39 Antibiotics) All Systems PM: A 10-system review of systems was performed and is negative for pertinent findings except as documented above in the HPI. - Constitutional Vitals: Temp Pulse Resp BP Pulse Ox 100.4 F H 93 18 105/76 94 08/30/17 19:32 08/30/17 19:32 08/30/17 19:32 08/30/17 19:32 08/30/17 19:32 Internal Med - H&P Results - Labs CBC & Chem 7: 08/31/17 04:54 08/30/17 17:45 - Assessment and plan (1) GI bleed Current Visit: Yes Status: Acute Assessment and plan: ASSESSMENT: - GI bleeding DD *Gastroenteritis *Gastritis *PUD *Hemorrhoids *Divericulitis PLAN: - IVF - NPO - H/H now and q 8 hr - Protonix 40 mg IV QD/BID - GI consult-> EGD/Colonoscopy - O2 to keep SpO2 > 92% - CBCD, BMP, INR/PTT in AM - Compression stocking BLE for DVT prophylaxis Qualifiers: GI bleed type/associated pathology: unspecified gastrointestinal hemorrhage type Qualified Code(s): K92.2 - Gastrointestinal hemorrhage, unspecified (2) Diabetes Current Visit: No Status: Chronic Qualifiers: Diabetes mellitus type: type 2 Diabetes mellitus filler leaf cutter long insulin use: with filler leaf cutter long use Diabetes mellitus complication status: with kidney complications Diabetes mellitus complication detail: with chronic kidney disease Chronic kidney disease stage: stage 3 (moderate) Qualified Code(s): E11.22 - Type 2 diabetes mellitus with diabetic chronic kidney disease; N18.3 - Chronic kidney disease, stage 3 (moderate); Z79.4 - [facility] (current) use of insulin (3) HTN (hypertension) Current Visit: No Status: Acute Qualifiers: Hypertension type: essential hypertension Qualified Code(s): I10 - Essential (primary) hypertension (4) Anemia Current Visit: Yes Status: Acute Qualifiers: Anemia type: unspecified type Qualified Code(s): D64.9 - Anemia, unspecified - Time Spent With Patient Total time spent is greater than 50% in coordination of care (as documented) at patient's floor/unit and/or counseling patient:
[2017-08-30] MEDS ORDERED: Acetaminophen 325 MG TABLET PO PRN (20:37)
[2017-08-30] MEDS ORDERED: Naloxone 0.4 MG/ML INJ IVP PRN (20:37)
[2017-08-30] MEDS ORDERED: *HR* HYDROcodone/Acet 5/325 mg TABLET PO PRN (20:37)
[2017-08-30 21:05] LABS: Prothrombin Time 11.4 Seconds (9.4-12.1)
[2017-08-30 21:08] LABS: Activated Partial Thrombo Time 30.2 Seconds (26.0-36.0)
[2017-08-30] MEDS: 0.9 % Sodium Chloride 1,000 ML IVC SCH (22:42)
[2017-08-31] MEDS ORDERED: Dextrose Gel 15 GM/37.5 ML TUBE PO PRN ×2 (03:21)
[2017-08-31] MEDS ORDERED: D5% in Water 1,000 ML IVC PRN (03:21)
[2017-08-31] MEDS ORDERED: *HR* Dextrose 50 % in Water (Syg) 50 ML SYRINGE IVP PRN (03:21)
[2017-08-31] MEDS ORDERED: (Subcutaneous Insulin Pump [T:Slim] 1 EACH) MC SCH (03:30)
[2017-08-31] MEDS: 0.9 % Sodium Chloride 1,000 ML IVC SCH (04:42)
[2017-08-31 05:19] LABS: Hematocrit 29.8 % (35.3-44.9); Hemoglobin 10.1 g/dL (11.5-15.4); Mean Corpuscular HGB Conc 33.9 g/dL (31.6-35.5); Mean Corpuscular Volume 97.4 fL (83.0-100.0); Mean Platelet Volume 11.1 fL (9.4-12.4); Platelet Count 215 K/mcL (140-400); Red Blood Count 3.06 M/mcL (3.82-4.97); Red Cell Distribution Width 13.8 % (11.5-14.5)
[2017-08-31 05:41] LABS: Chol/HDL Ratio 3.2 (0-4.9); Magnesium 1.6 mg/dL (1.6-2.6); Phosphorous 3.5 mg/dL (2.7-4.5)
[2017-08-31] MEDS: Pantoprazole 40 MG VIAL IVP SCH ×2 (05:44→17:17)
[2017-08-31] MEDS: Insulin LISPRO 300 UNITS/3 ML VIAL SQ SCH ×3 (05:49→17:19)
[2017-08-31] MEDS ORDERED: Diltiazem CD (24hr) 300 MG CAPSULE PO SCH (09:00)
[2017-08-31] MEDS ORDERED: Methylphenidate HCl 10 MG TABLET PO SCH (09:00)
[2017-08-31] MEDS ORDERED: Multivit/Ca/Min/Fe/FA 1 TAB TABLET PO SCH (09:00)
[2017-08-31] MEDS ORDERED: PLECANATIDE PO SCH (09:00)
[2017-08-31] MEDS ORDERED: Aspirin Enteric Coated 81 MG Tablet PO SCH (09:00)
[2017-08-31] MEDS ORDERED: FLUoxetine 20 MG CAPSULE PO SCH (09:00)
[2017-08-31] MEDS ORDERED: Ondansetron ODT 4 MG TAB.RAPDIS PO SCH (09:00)
[2017-08-31] MEDS ORDERED: Beclomethasone 80mcg MDI IH SCH (10:00)
[2017-08-31] MEDS ORDERED: 0.9 % Sodium Chloride 1,000 ML IVC SCH (12:30)
[2017-08-31] MEDS ORDERED: *HR* Succinylcholine 200 MG/10 ML VIAL IVP ONE (12:35)
[2017-08-31] MEDS ORDERED: Dexamethasone 4 MG/ML VIAL ONE (12:41)
[2017-08-31] MEDS ORDERED: Ondansetron 4 MG/2 ML VIAL ONE (12:41)
--- NOTE | 2017-08-31 12:53 | Anesthesia Evaluation PreOp ---
Date of Encounter: 08/31/17 Time of Encounter: 13:00 - Past History Planned Operation: EGD Cardiac History: HTN, Hyperlipidemia Pulmonary History: Smoker MANAGER NURSING History: Denies Any Significant HX Other Medical History: Renal (CKD), Diabetes Type II Anesthesia History: No Prior Anesthetic Complications : No Alcohol Use: occasionally Drug use: none Medications and Allergies Azathioprine [Imuran] 50 mg PO QAM 11/11/14 [History] Gabapentin [Neurontin] 600 mg PO HS 11/11/14 [History] Multivitamin/Iron/Folic Acid [Centrum Complete Multivit Tab] 1 tab PO DAILY [History] Pantoprazole Sodium [Protonix] 40 mg PO QAM 11/11/14 [History] Rosuvastatin Calcium [Crestor] 10 mg PO HS 06/03/16 [History] Aspirin Enteric Coated [Aspirin EC] 81 mg PO DAILY 06/06/17 [History] FLUoxetine HCl [Prozac] 40 mg PO DAILY 06/06/17 [History] Fluticasone Propionate [Flovent Hfa] 2 puff IH BID PRN 06/06/17 [History] Methylphenidate HCl [Ritalin] 20 mg PO TID 06/06/17 [History] Ondansetron HCl [Zofran] 4 mg PO DAILY 06/06/17 [History] Subcutaneous Insulin Pump [T:Slim] 1 each MC AD 06/06/17 [History] Diltiazem HCl [Cardizem LA] 300 mg PO DAILY 08/30/17 [History] HydrOXYzine Pamoate [Vistaril] 50 mg PO BID PRN 08/30/17 [History] Plecanatide [Trulance] 3 mg PO DAILY 08/30/17 [History] Polyethylene Glycol 3350 [MiraLAX] 17 gm PO PRN PRN 08/30/17 [History] Fluticasone Propionate Nasal [Flonase] 2 spray NS BID 08/31/17 [History] 3 Allergy/AdvReac Type Severity Reaction Status Date / Time Varenicline [From Chantix] Allergy Hives Verified 08/31/17 10:31 cilostazol AdvReac See Verified 08/31/17 10:31 Comments metoclopramide [From Reglan] AdvReac See Verified 08/30/17 17:39 Comments Oxycodone [From Percocet] AdvReac Vomiting Verified 08/31/17 10:31 Sulfa (Sulfonamide AdvReac Nausea Verified 08/31/17 10:31 Antibiotics) - Meds/Allergy Pre-op Review Medications Reviewed: Yes Allergies Reviewed: Yes Beta Blockers on Current Med List: No Anesthesia Results - Labs 08/31/17 04:54 08/30/17 17:45 - Imaging EKG: report reviewed (SR) Additional studies: ECHO EF 60% 2018, Stress test negative Anesthesia Exam Vital Signs/O2 Sat/Glucose, Most Current Temp Pulse Resp BP Pulse Ox 08/31/17 10:57 16 97 08/31/17 10:26 98.1 F 85 16 162/77 98 Height: 5'6 Weight: 160 lbs NPO (# of Hours): MN Pain Scale: 0 - HEENT Pupil (Motor): Pupils equal, EOMI Mallampati: II Oral Opening: Greater than 3 - MANAGER NURSING LOC: Oriented MANAGER NURSING Motor: Normal RUE, Normal LUE, Normal RLE, Normal LLE, Normal Face MANAGER NURSING Sensory: Normal: RUE, LUE, RLE, LLE, Face - Cardiac Rhythm: Regular Murmur: None JVD: No Carotid Bruit: No - Pulmonary Breath Sounds: bilateral Clear Respiratory Effort: Symmetrical Anesthesia Assess/Plan ASA Score: 3 (HTN DM Tobacco) Modified [place] Scale for Level of Consciousness: Cooperative, oriented, and tranquil Anesthetic Plan: MAC Monitoring Plan: Standard Monitors Recovery Plan: Other (Discussed MAC, agrees to proceed)
[2017-08-31] MEDS ORDERED: Lidocaine -MPF 2% 2 ML VIAL ONE (12:55)
[2017-08-31] MEDS ORDERED: Propofol 500 MG/50 ML INFUS..BTL ONE (12:55)
[2017-08-31] MEDS ORDERED: Methylphenidate HCl 10 MG TABLET PO PRN (13:48)
--- NOTE | 2017-08-31 14:10 | Gastroenterology Consult Note ---
Date of Encounter: 08/31/17 Time of Encounter: 13:05 - Assessment and plan (1) GI bleed Current Visit: Yes Status: Acute Assessment and plan: - Possible GI bleed in the setting of chronic anemia. - H/H stable at 10.1/29.8 - Baseline hemoglobin at 11-12 - Patient denies blurred red blood per rectum however does note dark brown clots - Instructed to present to emergency room by intern Plan - Plan for EGD this afternoon with Dr. Arreola - Preliminary results of EGD showing severe reflux with gastritis. Biopsies pending. - Patient did desaturate during endoscopy and was subsequently intubated. Will likely be extubated in PACU. Patient will be reevaluated this evening for possibility of colonoscopy versus outpatient management tomorrow. - Further recommendations pending results of EGD/colonoscopy We will discuss further with Dr. Arreola Qualifiers: GI bleed type/associated pathology: unspecified gastrointestinal hemorrhage type Qualified Code(s): K92.2 - Gastrointestinal hemorrhage, unspecified (2) Abdominal pain Current Visit: Yes Status: Acute Assessment and plan: - Describes a crampy abdominal pain located in the epigastric region, acute on chronic in nature - Admits to associated nausea, vomiting. 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 Likely acute. Qualifiers: Anemia type: unspecified type Qualified Code(s): D64.9 - Anemia, unspecified - Time Spent With Patient Total time spent is greater than 50% in coordination of care (as documented) at patient's floor/unit and/or counseling patient: GI History of Present Illness - Data of Consult Consult date: 08/31/17 Requesting Physician: Augustin Martines - Consult Narrative Reason for consult: GI bleed History of present illness: Ms. Mercedes is a 47 year old female with past medical history of diabetes, fibromyalgia, GERD, hyperlipidemia, hypertension, PAD, CKD, cirrhosis secondary to autoimmune hepatitis presented to emergency room due to anemia. Patient states that she was at a routine follow-up with her intern and she was called presented to emergency room due to anemia. H/H on presentation was 10.1/29.8. Patient does admit to symptoms of crampy abdominal pain located in her epigastric region, nausea, dizziness. She also states that she has had bowel movements that were consistent with dark in color and dark brown clots. Denies any bright red blood per rectum. Colonoscopy: 10/05/2011:15 mm nonbleeding polyp splenic flexure, otherwise normal EGD: 10/05/2011: Empiric esophageal dilation Past Med Surg Social Fam HX - Past Medical History Medical history: diabetes, fibromyalgia, GERD, hyperlipidemia, hypertension, liver disease, peripheral artery disease, renal disease Additional medical history: IBS gastroperisis choleitis Sleep apnea Psychiatric history: anxiety, depression - Past Surgical History Surgical History: orthopedic, other, sinus surgery, other Additional surgical history: Bilateral eye disease. - Social History Smoking Status: Current every day smoker Packs per day: 1 pack Smokeless Tobacco Status: No Alcohol use: occasionally Drug use: none - Family History Mother Adopted: [place]: Samantha South Family Member Ethnicity: Non- Living Status: Still Living Hx Family Cardiac Disorders: No Hx Family Respiratory Disorders: No Hx Family Cancer: No Hx Family GI Disorders: No Hx Family Genitourinary Disorders: No Hx Family Endocrine Disorder: No Hx Family Musculoskeletal Disorders: No Hx Family Neuromuscular Disorders: No Hx Family Neurologic Disorders: No Hx Family HEENT Disorders: No Hx Family Autoimmune Disorders: No Hx Family Reproductive Disorders: No Hx Family Psychosocial Disorders: No Hx Family Medical Disorders: No ([place] disease) Father History Unknown: Yes Name: Rosales Man Family Member Ethnicity: Non- Living Status: Still Living Hx Family Cancer: Yes (esophageal cancer) - Gastrointestinal NSAID use: none. Anticoagulation Use: none. Gastrointestinal: Present: abdominal pain, bloating, constipation, heartburn, melena, nausea, vomiting. Absent: coffee ground emesis, hematochezia - Constitutional Constitutional: no fatigue, no fever(s) - Cardiovascular Cardiovascular ROS: Absent: chest pain - Respiratory Respiratory IM: Absent: dyspnea - Hematologic/Lymphatic Hematologic/Lymphatic pediatric: Absent: easy bleeding - Integumentary Integumentary GI: Absent: rash - Constitutional Vitals: Temp Pulse Resp BP Pulse Ox 98.1 F 84 16 125/78 99 07/05/18 10:26 08/31/17 13:02 08/31/17 13:02 08/31/17 13:02 08/31/17 13:02 Exam: Gen.: Vitals noted. No acute distress. AAOx3 HEENT: PERRL/EOMI, oropharynx clear, Normocephalic, atraumatic, MMM Cardiac: RRR, no murmur, +S1/S2 Pulmonary: CTA bilaterally, no wheezes, rales or rhonchi, equal chest expansion Abdomen: soft, nontender, BS noted, no guarding, no rebound. Mildly distended Extremities: no BLE edema, nontender calf, no cyanosis or clubbing Neuro: A&Ox3, moves all extremities, no focal deficits Psych: Appropriate mood and behavior Results - Labs CBC & Chem 7: 08/31/17 04:54 08/30/17 17:45 Labs: Last Result Calcium 9.6 mg/dL (8.6-10.3) 08/30/17 17:45 Triglycerides 160 mg/dL (< 150) H 08/31/17 04:54 Entire Visit Hgb 10.1 g/dL (11.5-15.4) L 08/31/17 04:54 Hct 29.8 % (35.3-44.9) L 08/31/17 04:54 PT 11.4 Seconds (9.4-12.1) 08/30/17 17:59 Total Bilirubin 0.4 mg/dL (0.3-1.0) 08/30/17 17:45 AST 22 Units/L (13-39) 08/30/17 17:45 ALT 13 Units/L (7-52) 08/30/17 17:45 - ABG ABG results: PT/INR, D-dimer PT 11.4 Seconds (9.4-12.1) 08/30/17 17:59 Consult Discharge Plan - Plan Referrals: Soraya Lopez MD [Primary Care Provider] -
[2017-08-31] MEDS ORDERED: *HR* Promethazine 25 MG/ML VIAL IVP PRN (14:14)
--- NOTE | 2017-08-31 14:56 | Anesthesia Evaluation Post Op ---
Date of Encounter: 08/31/17 Time of Encounter: 14:40 - Vital Signs Vital Signs: Vital Signs/O2 Sat/Glucose, Most Current Temp Pulse Resp BP Pulse Ox 08/31/17 14:45 97.7 F 84 16 153/74 97 08/31/17 14:35 97.7 F 81 16 149/69 95 08/31/17 14:25 89 18 144/68 97 08/31/17 14:15 83 17 145/87 96 08/31/17 14:01 97.7 F 92 16 154/73 97 08/31/17 13:02 84 16 125/78 99 08/31/17 10:57 16 97 - Lungs Lungs: Clear Ascult./Percussion - Airway Airway: Non-obstructed - Cardiovascular Regular Rate - Mental Status Mental Status: Alert & Oriented, Answers Appropriately - Pain Pain Scale: 0 - Nausea Vomiting Nausea Vomiting: Not Present - Hydration Hydration: Tolerates oral liquids - Discharge PostOp Status: Transfer Patient to floor
--- NOTE | 2017-08-31 17:16 | Discharge Summary ---
Orders not resulted at time of discharge: Pending orders 08/30/17 20:37 Urinalysis reflex Microscopic [URIN] Routine 08/31/17 13:47 Surgical Pathology [PTH] Routine Date of Encounter: 08/31/17 Time of Encounter: 17:14 - Discharge Diagnosis (1) Anemia Priority: Primary Status: Acute Qualifiers: Anemia type: unspecified type Qualified Code(s): D64.9 - Anemia, unspecified (2) Type 2 diabetes mellitus Priority: Secondary Status: Chronic Qualifiers: Diabetes mellitus assisted insulin use: with paramedic instructor use Diabetes mellitus complication status: with kidney complications Diabetes mellitus complication detail: with chronic kidney disease Chronic kidney disease stage : stage 4 (severe) Qualified Code(s): E11.22 - Type 2 diabetes mellitus with diabetic chronic kidney disease; N18.4 - Chronic kidney disease, stage 4 (severe ); Z79.4 - skilled nursing (current) use of insulin (3) Hypertensive kidney disease with CKD (chronic kidney disease) stage II Priority: Secondary Status: Chronic (4) Hepatitis, autoimmune Priority: Secondary Status: Chronic (5) GERD (gastroesophageal reflux disease) Priority: Secondary Status: Chronic Hospital course: Ms. Mercedes is a 47 year old female. Discharge discussed with: patient, family - Time Spent with Patient Total time spent providing and/or coordinating discharge services: Greater than 30 minutes - Discharge Medications Home Medications: Azathioprine [Imuran] 50 mg PO QAM 11/11/14 [History] Gabapentin [Neurontin] 600 mg PO HS 11/11/14 [History] Multivitamin/Iron/Folic Acid [Centrum Complete Multivit Tab] 1 tab PO DAILY [History] Pantoprazole Sodium [Protonix] 40 mg PO QAM 11/11/14 [History] Rosuvastatin Calcium [Crestor] 10 mg PO HS 06/03/16 [History] Aspirin Enteric Coated [Aspirin EC] 81 mg PO DAILY 06/06/17 [History] FLUoxetine HCl [Prozac] 40 mg PO DAILY 06/06/17 [History] Fluticasone Propionate [Flovent Hfa] 2 puff IH BID PRN 06/06/17 [History] Methylphenidate HCl [Ritalin] 20 mg PO TID 06/06/17 [History] Ondansetron HCl [Zofran] 4 mg PO DAILY 06/06/17 [History] Subcutaneous Insulin Pump [T:Slim] 1 each MC AD 06/06/17 [History] Diltiazem HCl [Cardizem LA] 300 mg PO DAILY 08/30/17 [History] HydrOXYzine Pamoate [Vistaril] 50 mg PO BID PRN 08/30/17 [History] Plecanatide [Trulance] 3 mg PO DAILY 08/30/17 [History] Polyethylene Glycol 3350 [MiraLAX] 17 gm PO PRN PRN 08/30/17 [History] Fluticasone Propionate Nasal [Flonase] 2 spray NS BID 08/31/17 [History] Allergies/Adverse Reactions: 3 Allergy/AdvReac Type Severity Reaction Status Date / Time Varenicline [From Chantix] Allergy Hives Verified 08/31/17 10:31 cilostazol AdvReac See Verified 08/31/17 10:31 Comments metoclopramide [From Reglan] AdvReac See Verified 08/30/17 17:39 Comments Oxycodone [From Percocet] AdvReac Vomiting Verified 08/31/17 10:31 Sulfa (Sulfonamide AdvReac Nausea Verified 08/31/17 10:31 Antibiotics) Date of admission: 08/30/17 18:35 Primary care physician: Soraya Mercado[facility] Consults: GI diseases. Discharging clinician: Augustin Martines Anticipated date of discharge: 08/31/17 - Constitutional Vitals: Temp Pulse Resp BP Pulse Ox 97.8 F 96 16 175/80 98 08/31/17 16:38 08/31/17 16:38 08/31/17 16:38 08/31/17 16:38 08/31/17 16:38 General appearance: Present: A&O X 3, pleasant, no acute distress - Respiratory Respiratory exam: Present: CTAB. Absent: accessory muscle use, rales, rhonchi, wheezes - Cardiovascular Cardiovascular exam: Present: RRR, +S1, +S2. Absent: diastolic murmur, gallop, rubs, systolic murmur - GI/Abdominal GI/Abdominal exam: Present: normal bowel sounds, soft, no peritoneal signs. Absent: distended, tenderness - Patient Status Disposition: Home, Self-Care Condition: Good Functional capacity at discharge: independent ambulation Overall status at discharge: patient is back to baseline - Discharge Instructions Follow Up With: Soraya Lopez MD [Primary Care Provider] - Additional Instructions: Follow-up with gastroenterology in about 1 week. CBC every 3 months starting in one week. Results to PCP and to gastroenterology. - Diet and Activity Activity: resume usual activities as tolerated - VTE Deep Vein Thrombosis/Pulmonary Embolism Present on Admission: No
[2017-08-31 17:39] VITALS: BP 171/74
[2017-08-31] MEDS ORDERED: Gabapentin 300 MG CAPSULE PO SCH (21:00)
--- NOTE | 2017-09-01 09:58 | Electrocardiograph Report ---
[address] [place], [place] [address] Test Date: 2017-08-30 Pat Name: Eliane Mercedes Department: [id number] Room: 3A25 Gender: F Facility Specialist: JULIO CESAR : 1970 Requested By: Russ Osuna Order Number: [id number] Reading MD: Lawson Arrington Measurements Intervals [place] Rate: 86 P: 66 DE: 162 QRS: 49 QRSD: 80 T: 61 QT: 360 QTc: 404 Interpretive Statements SINUS RHYTHM Electronically Signed On 09-01-2017 9:57:12 EDT by Lawson Arrington
== END 2017-08-31 18:12 | disposition home or self-care (01) ==
LOC: 3ANU 17:34 → EMEROO 17:34 → SUATTDRO 18:35 → 3ANU 18:55
PROVIDERS: ADMIT Internal Medicine Nephrology; ATTEND Internal Medicine
PROC: ENDOEBX (2017-08-31 13:00)

== ENCOUNTER 2018-12-19 11:23 | Observation (INO) ==
[2018-12-19] MEDS ORDERED: 0.9 % Sodium Chloride 1,000 ML IVC ONE (11:59)
[2018-12-19] MEDS ORDERED: Insulin Human Regular 10 UNIT in 0.9 % Sodium Chloride 10 ML IV ONE (11:59)
[2018-12-19] MEDS ORDERED: *HR* Dextrose 50 % in Water (Syg) 50 ML SYRINGE IVP ONE (11:59)
[2018-12-19] MEDS ORDERED: Calcium Gluconate 1,000 MG/10 ML VIAL IVPB STA (12:01)
[2018-12-19] MEDS ORDERED: Calcium Gluconate 1gm/50mL 1 GM/50 ML BAG IVPB ONE (12:30)
[2018-12-19 12:33] LABS: Basophils # 0.1 K/mcL (0.0-0.2); Basophils % 0.6 %; Eosinophils # 0.2 K/mcL (0.0-0.6); Eosinophils % 2.1 %; Hematocrit 30.5 % (35.3-44.9); Hemoglobin 10.3 g/dL (11.5-15.4); Immature Granulocytes % 0.3 % (0-4); Lymphocytes # 1.8 K/mcL (0.6-4.6); Lymphocytes % 18.1 %; Mean Corpuscular HGB Conc 33.8 g/dL (31.6-35.5); Mean Corpuscular Hemoglobin 33.8 pg (28.0-33.3); Mean Platelet Volume 10.7 fL (9.4-12.4); Monocytes # 0.7 K/mcL (0.0-1.3); Monocytes % 6.8 %; Neutrophils # 7.1 K/mcL (1.6-8.9); Platelet Count 266 K/mcL (140-400); Red Blood Count 3.05 M/mcL (3.82-4.97); Red Cell Distribution Width 13.8 % (11.5-14.5); Segmented Neutrophils % 72.1 %; White Blood Count 9.8 K/mcL (4.3-11.1)
[2018-12-19 13:08] LABS: Magnesium 1.9 mg/dL (1.6-2.6)
[2018-12-19 13:56] LABS: Calcium 9.1 mg/dL (8.6-10.3); Potassium 4.8 mEq/L (3.5-5.1)
[2018-12-19] MEDS ORDERED: Ondansetron 4 MG/2 ML VIAL IVP PRN (14:13)
[2018-12-19] MEDS ORDERED: Naloxone 0.4 MG/ML INJ IVP PRN (14:13)
[2018-12-19] MEDS ORDERED: Acetaminophen 325 MG TABLET PO PRN (14:13)
[2018-12-19] MEDS ORDERED: Dextrose Gel 15 GM/37.5 ML TUBE PO PRN ×2 (14:55)
[2018-12-19] MEDS ORDERED: *HR* Dextrose 50 % in Water (Syg) 50 ML SYRINGE IVP PRN (14:55)
[2018-12-19] MEDS ORDERED: D5% in Water 1,000 ML IVC PRN (14:55)
[2018-12-19] MEDS ORDERED: NON-FORMULARY MEDICATION 1 EACH EACH (Subcutaneous Insulin Pump [T:Slim] 1 EACH) SQ SCH (16:15)
[2018-12-19] MEDS: Insulin LISPRO 300 UNITS/3 ML VIAL SQ SCH ×3 (17:07→22:15)
[2018-12-19] MEDS: 0.9 % Sodium Chloride 1,000 ML IVC SCH (17:08)
[2018-12-19 20:54] LABS: Bilirubin,Urine Negative (Negative); Blood,Urine Negative (Negative); Clarity,Urine Clear (Clear); Color,Urine Yellow (Yellow); Glucose,Urine (UA) 100 mg/dL (Normal); Ketones,Urine Negative (Negative); Leukocyte Esterase,Urine Negative (Negative); Nitrite,Urine Negative (Negative); Protein,Urine >=300 mg/dL (Neg-Trace); Urobilinogen,Urine Normal (Normal)
[2018-12-19 20:57] LABS: Bacteria,Urine None Seen per hpf (None-Few); Hyaline Casts,Urine None Seen per lpf (None-Few); RBC,Urine 0-3 per hpf (0-3); Squamous Epithelial Cell,Urine Moderate per lpf (None-Few); WBC,Urine 0-3 per hpf (0-3)
[2018-12-19] MEDS ORDERED: Gabapentin 300 MG CAPSULE PO SCH (21:00)
[2018-12-19] MEDS ORDERED: Methylphenidate HCl 10 MG TABLET PO SCH (21:00)
[2018-12-19] MEDS ORDERED: Gabapentin 100 MG CAPSULE PO SCH (21:00)
[2018-12-19 21:03] LABS: Creatinine,Urine < 1 mg/dL; Sodium, Urine < 10.0 mEq/L
[2018-12-20] MEDS ORDERED: Insulin Human Regular 10 UNIT in 0.9 % Sodium Chloride 10 ML IV ONE (00:35)
[2018-12-20] MEDS: 0.9 % Sodium Chloride 1,000 ML IVC SCH ×2 (01:10→08:54)
[2018-12-20 05:47] LABS: Basophils # 0.1 K/mcL (0.0-0.2); Basophils % 0.8 %; Eosinophils # 0.2 K/mcL (0.0-0.6); Hematocrit 27.5 % (35.3-44.9); Hemoglobin 9.6 g/dL (11.5-15.4); Immature Granulocytes % 0.4 % (0-4); Lymphocytes % 27.9 %; Mean Corpuscular HGB Conc 34.9 g/dL (31.6-35.5); Mean Corpuscular Hemoglobin 33.9 pg (28.0-33.3); Mean Corpuscular Volume 97.2 fL (83.0-100.0); Mean Platelet Volume 10.7 fL (9.4-12.4); Monocytes # 0.6 K/mcL (0.0-1.3); Monocytes % 8.5 %; Neutrophils # 4.3 K/mcL (1.6-8.9); Platelet Count 256 K/mcL (140-400); Red Blood Count 2.83 M/mcL (3.82-4.97); Segmented Neutrophils % 59.4 %; White Blood Count 7.3 K/mcL (4.3-11.1)
[2018-12-20 06:03] LABS: Calcium 8.8 mg/dL (8.6-10.3); Potassium 4.4 mEq/L (3.5-5.1)
[2018-12-20 07:24] VITALS: BP 174/70
[2018-12-20] MEDS ORDERED: Methylphenidate HCl 10 MG TABLET PO SCH (08:00)
[2018-12-20] MEDS: Insulin LISPRO 300 UNITS/3 ML VIAL SQ SCH (08:54)
[2018-12-20] MEDS ORDERED: Ondansetron ODT 4 MG TAB.RAPDIS PO SCH (09:00)
[2018-12-20] MEDS ORDERED: FLUoxetine 20 MG CAPSULE PO SCH (09:00)
[2018-12-20] MEDS ORDERED: Aspirin Enteric Coated 81 MG Tablet PO SCH (09:00)
[2018-12-20] MEDS ORDERED: Diltiazem CD (24hr) 300 MG CAPSULE PO SCH (09:00)
== END 2018-12-20 11:03 | disposition home or self-care (01) ==
LOC: EMEROOARM 11:23 → 2ANU 11:23 → SUATTDRO 15:01 → 2ANU 16:00
PROVIDERS: ADMIT Student in an Organized Health Care Education/Training Program; ATTEND Pharmacist